=== PATIENT | female | born 1950 | race Caucasian/White ===

== ENCOUNTER 2016-04-27 12:15 | Inpatient (IN) | payer BC ==
[~2016-04-27] VITALS: Ht 167.6 cm; Wt 86.2 kg
[~2016-04-27 12:15] MED LIST: DULO60CA6 PO; HYDR-2762 PO; IBUP-1027 PO; OMEP40CA2 PO; PREG150C PO; SIMV40TA3 PO; ZOLP5TAB PO
[2016-04-29] MEDS ORDERED: ASPI325T4 PO (15:09)
[2016-04-29] MEDS ORDERED: CELE200C PO (15:09)
[2016-04-29] MEDS ORDERED: FERR-26 PO (15:09)
[2016-04-29] MEDS ORDERED: SUCR1TAB29 PO (15:09)
[2016-05-25] VITALS (9 sets, daily range): BP systolic 98–128; BP diastolic 56–70
[2016-05-25] MEDS ORDERED: CEFAZOLIN 2GM PREMIX 50 ML IV PRN (06:00)
[2016-05-25] MEDS ORDERED: TRANEXAMIC ACID 1,000 MG in IV NORMAL SALINE 50ML 50 ML INJ ONE ×2 (06:00→08:00)
[2016-05-25] MEDS ORDERED: CELECOXIB 200 MG CAPSULE ONE (06:11)
[2016-05-25] MEDS ORDERED: OXYC-244 PO (06:15)
[2016-05-25] MEDS ORDERED: CELECOXIB 200 MG CAPSULE PO ONE (06:30)
[2016-05-25] MEDS ORDERED: VANCOMYCIN 1 GM VIAL. ONE (06:40)
[2016-05-25] MEDS ORDERED: TOBRAMYCIN POWDER 1.2 GM VIAL. ONE (06:40)
[2016-05-25] MEDS ORDERED: PROPOFOL 20 ML IV ONE (06:58)
[2016-05-25] MEDS ORDERED: ONDANSETRON PF 4 MG/2 ML VIAL. ONE (06:58)
[2016-05-25] MEDS ORDERED: ROCURONIUM 50 MG/5 ML VIAL. ONE (06:58)
[2016-05-25] MEDS ORDERED: DEXAMETHASONE SOD PHOS 20 MG/5 ML VIAL. ONE ×2 (06:58→07:30)
[2016-05-25] MEDS ORDERED: LIDOCAINE 2% 100 MG/5 ML DISP.SYRIN. ONE (06:58)
[2016-05-25] MEDS ORDERED: FAMOTIDINE 20 MG/2 ML VIAL ONE (06:58)
[2016-05-25] MEDS ORDERED: MIDAZOLAM HCL 2 MG/2 ML VIAL. ONE (06:58)
[2016-05-25] MEDS ORDERED: MORPHINE SULFATE 2 MG/ML DISP.SYRIN. IV PRN ×2 (07:00→09:45)
[2016-05-25] MEDS ORDERED: IV RINGERS,LACTATED 1000ML 1,000 ML IV SCH (07:00)
[2016-05-25] MEDS ORDERED: FENTANYL PF 100 MCG/2 ML VIAL. IV PRN ×3 (07:00→09:45)
[2016-05-25] MEDS ORDERED: HYDROMORPHONE 2 MG/ML VIAL. IV PRN (07:00)
[2016-05-25] MEDS ORDERED: PROCHLORPERAZINE 10 MG/2 ML VIAL. IV PRN ×2 (07:00→09:45)
[2016-05-25] MEDS ORDERED: LIDOCAINE 1% 1 ML SYRINGE. ID PRN (07:00)
[2016-05-25] MEDS ORDERED: ONDANSETRON PF 4 MG/2 ML VIAL. IV PRN (07:00)
[2016-05-25] MEDS ORDERED: EPHEDRINE PF IN SALINE 50 MG/5 ML DISP.SYRIN. IV ONE (07:30)
[2016-05-25] MEDS ORDERED: VASOPRESSIN 20 UNIT/ML VIAL. ONE (07:33)
[2016-05-25] MEDS ORDERED: 0.9 % SODIUM CHLORIDE 50 ML VIAL. IJ ONE (07:34)
[2016-05-25] MEDS ORDERED: GLYCOPYRROLATE 1 MG/5 ML VIAL. ONE (07:34)
[2016-05-25] MEDS ORDERED: KETOROLAC 30 MG/ML SYRINGE FOR OR. INJ ONE (07:45)
[2016-05-25] MEDS ORDERED: MORPHINE SULFATE 5 MG, ROPIVacaine 0.5% PF 60 ML, EPINEPHRINE 0.5 MG in IV NORMAL SALIN... INT ART ONE (08:00)
[2016-05-25] MEDS ORDERED: NEOSTIGMINE METHYLSULFATE 5 MG/5 ML SYRINGE. ONE (08:41)
[2016-05-25] MEDS ORDERED: ACETAMINOPHEN INTRAVENOUS 100 ML IV ONE (08:44)
[2016-05-25] MEDS ORDERED: FENTANYL PF 100 MCG/2 ML VIAL. ONE (08:47)
[2016-05-25] MEDS ORDERED: SEVOFLURANE > 120 MINUTES. IH ONE (09:23)
[2016-05-25] MEDS ORDERED: MORPHINE SULFATE 4 MG/ML DISP.SYRIN. IV PRN ×2 (09:45)
[2016-05-25] MEDS ORDERED: MORPHINE SULFATE 10 MG/ML VIAL. IV PRN (09:45)
[2016-05-25] MEDS ORDERED: PROCHLORPERAZINE 5 MG TABLET. PO PRN (09:45)
[2016-05-25] MEDS ORDERED: 0.9 % SODIUM CHLORIDE 10 ML DISP.SYRIN. IV PRN (09:45)
[2016-05-25] MEDS ORDERED: OXYCODONE/APAP 5/325 TABLET. PO PRN (09:45)
[2016-05-25] MEDS ORDERED: DEXTROSE 50% 25 GM / 50ML DISP.SYRIN. IV PRN (09:45)
[2016-05-25] MEDS ORDERED: TRAMADOL 50 MG TABLET. PO PRN ×2 (09:45)
[2016-05-25] MEDS ORDERED: DIPHENHYDRAMINE 50 MG/ML VIAL IV PRN (09:45)
[2016-05-25] MEDS ORDERED: CALCIUM CARBONATE 500 MG TAB.CHEW PO PRN (09:45)
[2016-05-25] MEDS ORDERED: ACETAMINOPHEN 325 MG TABLET. PO PRN (09:45)
[2016-05-25] MEDS ORDERED: METOCLOPRAMIDE HCL 10 MG/2 ML VIAL. IV PRN (09:45)
[2016-05-25] MEDS: FENTANYL PF 100 MCG/2 ML VIAL. IV PRN ×2 (09:47→10:43)
--- NOTE | 2016-05-25 10:19 | PDOC4 ---
Operative Note Operative Note Date of Procedure: May 25, 2016 Pre-Op Diagnosis: Osteoarthritis right knee Post-Op Diagnosis: Osteoarthritis right knee Procedure: right total knee arthroplasty Surgeon: Angi Mendez MD Human Factors Advisor Lead: Marie Baldwin PA-C Anesthesia: General EBL: 100 mL Specimens Obtained: right knee bone and soft tissue Complications: none Implant Company: [employer] Drains: Hemovac plus pain catheter Tourniquet time: 57 minutes Indications for Procedure: Arthritis pain unrelieved by nonoperative management. Findings: Severe osteoarthritis with bone on bone contact in all three compartments Implants used: Size 4 right bicruciate stabilized Journey II BCS oxinium femoral component, size 3 right Journey nonporous tibial baseplate, size 3-4 15 mm right Journey II BCS XLPE articular insert, 32 mm oval Jyoti II resurfacing patellar component Procedure in Detail: The patient was identified in the preoperative holding area, and the correct right extremity was marked by me. The patient was taken to the operating room where the patient was anesthetized by the Department of Anesthesia. Preoperative antibiotics were given intravenously. Tranexamic acid 1 g was given intravenously for intraoperative hemostasis. A "time-out" procedure was performed. The patient was positioned supine on the operative table with a tourniquet on the upper thigh. The limb was thoroughly prepped and draped in sterile fashion. An impervious stockinet and adhesive drape were used such that the skin was entirely covered. An Keys leg alvarez was used. The operating team wore personal exhaust-ventilated hoods. The tourniquet was inflated to 350 mm Hg. A midline skin incision was made with a scalpel using the patella and tibial tubercle as landmarks. Electrocautery was used for hemostasis. My state tested nursing assistant used rake retractors. A medial parapatellar arthrotomy incision was used with extension into the distal quadriceps tendon. The patella was retracted laterally and Hohmann retractors were now used by my state tested nursing assistant. Excess synovium, the menisci, and the cruciate ligaments were resected sharply. The patella was assessed and excess synovium and osteophytes around the patellar articulation were removed. The patella was measured with a caliper, cut freehand with a saw using caliper measurements, sized, and then drilled for an oval three-pegged patella component. Periarticular injection was used in the suprapatellar pouch and distal quadriceps muscle. Whitesides's line was assessed on the femur. An intra-medullary 5 degree cutting guide was pinned to the femur, and a distal femoral cut was made with an oscillating saw. No additional distal femoral resection was required.My state tested nursing assistant held Hohmann retractors and an [facility] retractor to protect the medial and lateral collateral ligaments, the patellar tendon, the skin and the other soft tissues. An anterior referencing guide was applied with external rotation of Choose an item. to match Whitesides line. A 5-in-1 Journey II cutting guide was then applied and pinned to the femur. The posterior, anterior , and all chamfer cuts were made with the oscillating saw. An extramedullary guide was pinned to the tibia and rotational alignment and the planned resection thickness assessed. An external alignment gilberto was used to verify the planned cut in the varus-valgus plane and regarding posterior slope referencing the tibial tubercle, the tibial shaft, the ankle joint, and the second metatarsal. The upper tibia was cut made with an oscillating saw. My state tested nursing assistant held Hohmann retractors and a posterior cruciate ligament retractor to protect the medial and lateral collateral ligaments, the patellar tendon, the skin, the peroneal nerve and the other soft tissues. The upper tibia was sized with a trial baseplate. The posterior compartment was cleared of osteophytes and loose bodies, and posterior capsule released. Neyda-articular injection was used in the posterior compartment. The box cut for a posterior stabilized component was made. A preliminary reduction was performed with a trial femur, trial tibial baseplate and trial polyethylene. Soft-tissue balancing was now performed, and extension and rotation of the alignments was checked using a guide gilberto in the tibial trial and a guide pin in the femur. No additional releases were required. The stability was assessed using different thicknesses of tibial articular surface to find satisfactory stability and good range of motion. The rotation of the tibial component was marked on the upper tibia. Final trial reduction was now performed verifying patella tracking and tibiofemoral stability and alignment. The tibia preparation was completed with a drill, saw, and fin punch at the previously noted rotation. The final implants were verified and opened. Outer gloves were changed by the operating team. The bone cuts were washed thoroughly with the [employer] InterPulse device and dried. Two packages of Palacos bone cement were mixed in powdered form with 1 gm of Vancomycin and 1.2 g tobramycin, then vacuum-mixed with the monomer, and placed into a cement gun. The cut surfaces of the bone were thoroughly dried with Lara-tip suction and with laparotomy sponges for cement interdigitation. The final components were cemented into place. The knee was kept at full extension while the cement hardened, and excess cement was removed. Tranexamic acid 1 g was redosed intravenously for additional intraoperative hemostasis. A final periarticular injection was used for pain relief. The tourniquet was released, and electrocautery was used for hemostasis. A final check of [id number] and stability was made, and the polyethylene implant final size was chosen. The polyethylene implant was secured to the tibial baseplate, and the knee was reduced a final time. Thorough irrigation was used. Hemovac and pain catheter were used.The arthrotomy was closed with interrupted [id number] #1 PDS suture. The capsulotomy was then run with #1 STRATAFIX symmetric PDS plus. The subcutaneous tissues were closed with #2-0 Vicryl by my state tested nursing assistant. The skin was reapproximated with 3-0 Monocryl and Dermabond by my state tested nursing assistant. A bulky sterile dressing was applied. Needle and sponge counts were correct. ANGI MENDEZ MD May 25, 2016 10:19
--- NOTE | 2016-05-25 10:27 | PDOC1 ---
History and Physical Date of Admission Date of Admission DATE: 05/25/16 Identification/Chief Complaint Chief Complaint right knee osteoarthritis pain Source Source: Chart review History of Present Illness History of Present Illness Yamila is a 65 year old female patient with persistent right knee pain. She had a right knee arthroscopy with medial and lateral meniscectomy, loose body removal, and Blankenship's cyst excision on 11/14/15. She has done formal physical therapy, corticosteroid injections, bracing, a home exercise plan, all with little to no relief. She can no longer walk any distance due to the knee pain. She has a history of osteopenia. Past Medical History Cardiovascular: Hyperlipidemia GI: GERD Psych: Depression Past Surgical History Past Surgical History: Tonsillectomy, Hysterectomy, Other Family History Family History: Heart Disease, Stroke Social History Smoke: No ALCOHOL: rare Drugs: None Current Problem List Problem List Problems Medical Problems: (1) Osteoarthritis of right knee Status: Acute Problems: Current Medications Current Medications Current Medications Morphine Sulfate/ Ropivacaine/ Epinephrine HCl/ Sodium Chloride (Morphine 5mg Syringe/Naropin 0.5%/Adrenalin/Iv Sodium Chloride 0.9% 100ml) 99.5 ml @ 99.5 mls/hr 1X PERIOP ONCE INT ART Last administered on 05/25/16 07:52; Start at 08:00; Stop 05/25/16 at 09:04; Status DC Ondansetron HCl (Zofran) 4 mg PRN Q6HRS PRN IV Nausea; Start 05/25/16 at 07:00 ; Stop 05/26/16 at 06:59 Fentanyl Citrate (Fentanyl 2ml Vial) 25 mcg PRN Q5MIN PRN IV MILD PAIN; Start 05/25/16 at 07:00; Stop 05/26/16 at 06:59 Fentanyl Citrate (Fentanyl 2ml Vial) 50 mcg PRN Q5MIN PRN IV MODERATE PAIN Last administered on 05/25/16 09:47; Start 05/25/16 at 07:00; Stop 05/26/16 at 06:59 Morphine Sulfate 1 mg 1 mg PRN Q10MIN PRN IV SEVERE PAIN; Start 05/25/16 at 07: 00; Stop 05/26/16 at 06:59 Lactated Ringer's (Iv Lactated Ringers) 1,000 ml @ 0 mls/hr Q0M IV Last administered on 05/25/16 06:26; Start 05/25/16 at 07:00; Stop 05/25/16 at 18:59 Lidocaine HCl 2 ml 1X PRN PRN ID IV START; Start 05/25/16 at 07:00; Stop at 06:59 Hydromorphone HCl (Dilaudid) 0.5 mg PRN Q10MIN PRN IV SEVERE PAIN, Second choice; Start 05/25/16 at 07:00; Stop 05/26/16 at 06:59 Prochlorperazine Edisylate 5 mg 5 mg PACU PRN PRN IV NAUSEA; Start 05/25/16 at 07:00; Stop 05/26/16 at 06:59 Cefazolin Sodium/ Dextrose 50 ml @ 100 mls/hr 1X PREOP PRN IV PRIOR TO PROCEDURE Last administered on 05/25/16 07:37; Start 05/25/16 at 06:00; Stop at 18:00 Tranexamic Acid 1000 mg/Sodium Chloride 60 ml @ 60 mls/hr 1X PERIOP ONCE INJ Last administered on 05/25/16 07:42; Start 05/25/16 at 06:00; Stop 05/25/16 at 06:59; Status DC Tranexamic Acid/ Sodium Chloride (Cyklokapron/Iv Sodium Chloride 0.9% 50ml) 60 ml @ 60 mls/hr 1X PERIOP ONCE INJ Last administered on 05/25/16 08:49; Start 05/25/16 at 08:00; Stop 05/25/16 at 09:04; Status DC Celecoxib (Celebrex) 400 mg 1X ONCE PO Last administered on 05/25/16 06:26; Start 05/25/16 at 06:30; Stop 05/25/16 at 06:31; Status DC Ketorolac Tromethamine (Toradol For Or Only) 30 mg 1X ONCE INJ Last administered on 05/25/16 08:00; Start 05/25/16 at 07:45; Stop 05/25/16 at 07:46 ; Status DC Acetaminophen/ Hydrocodone Bitart (Lortab 7.5/325) 1 tab PRN Q3HRS PRN PO PAIN ; Start 05/25/16 at 09:45 Acetaminophen/ Hydrocodone Bitart (Lortab 10/325) 1 tab PRN Q3HRS PRN PO PAIN; Start 05/25/16 at 09:45 Tramadol HCl (Ultram) 50 mg PRN QID PRN PO PAIN; Start 05/25/16 at 09:45 Oxycodone/ Acetaminophen (Percocet 5/325) 1 tab PRN Q3HRS PRN PO PAIN; Start at 09:45 Oxycodone/ Acetaminophen (Percocet 7.5/ 325) 1 tab PRN Q3HRS PRN PO PAIN; Start 05/25/16 at 09:45 Tramadol HCl (Ultram) 100 mg PRN Q3HRS PRN PO PAIN; Start 05/25/16 at 09:45 Morphine Sulfate 2 mg PRN Q1HR PRN IV PAIN; Start 05/25/16 at 09:45 Fentanyl Citrate (Fentanyl 2ml Vial) 25 mcg PRN Q1HR PRN IV PAIN; Start at 09:45 Diphenhydramine HCl (Benadryl) 25 mg PRN Q6HRS PRN IV ITCHING; Start 05/25/16 at 09:45 Multivitamins/ Calcium (Thera M Plus) 1 tab DAILY PO ; Start 05/25/16 at 10:30 Senna/Docusate Sodium (Senna Plus) 1 tab DAILY PO ; Start 05/25/16 at 10:30 Ferrous Sulfate (Feosol) 325 mg BIDWMEALS PO ; Start 05/25/16 at 10:30 Celecoxib 200 mg 200 mg BID PO ; Start 05/25/16 at 10:30 Dextrose/Sodium Chloride (Iv D5% - 1/2 NS) 1,000 ml @ 100 mls/hr Q10H IV ; Start 05/25/16 at 09:41 Prochlorperazine Maleate (Compazine) 10 mg PRN Q4HRS PRN PO NAUSEA/VOMITING; Start 05/25/16 at 09:45 Metoclopramide HCl (Reglan) 10 mg PRN Q4HRS PRN IV NAUSEA/VOMITING; Start 05/25 at 09:45 Magnesium Hydroxide (Milk Of Magnesia) 2,400 mg 1X PRN PRN PO CONSTIPATION; Start 05/26/16 at 06:00; Stop 05/27/16 at 05:59 Bisacodyl (Dulcolax Supp) 10 mg 1X PRN PRN [place] CONSTIPATION; Start 05/26/16 at 16:00; Stop 05/27/16 at 15:59 Acetaminophen (Tylenol) 650 mg PRN Q4HRS PRN PO MILD PAIN / TEMP; Start at 09:45 Zolpidem Tartrate (Ambien) 5 mg PRN QHS PRN PO INSOMNIA, MAY REPEAT IN 1HR; Start 05/25/16 at 09:45 Calcium Carbonate/ Glycine (Tums) 500 mg PRN QID PRN PO INDIGESTION; Start at 09:45 Morphine Sulfate 4 mg PRN Q1HR PRN IV PAIN; Start 05/25/16 at 09:45 Morphine Sulfate 6 mg PRN Q1HR PRN IV PAIN; Start 05/25/16 at 09:45 Morphine Sulfate 8 mg 8 mg PRN Q1HR PRN IV PAIN; Start 05/25/16 at 09:45 Ketorolac Tromethamine/ Bupivacaine HCl/ Epinephrine HCl/ Miscellaneous (Toradol / Sensorcaine Mpf 0.25%/Adrenalin) 43.0 ml @ 258 mls/hr Q12H INT ART ; Start at 18:00; Stop 05/26/16 at 06:09; Status UNV Sodium Chloride (Normal Saline Flush) 10 ml QSHIFT PRN IV AFTER MEDS AND BLOOD DRAWS; Start 05/25/16 at 09:45 Fentanyl Citrate (Fentanyl 2ml Vial) 50 mcg PRN Q1HR PRN IV PAIN; Start at 09:45 Prochlorperazine Edisylate (Compazine) 10 mg PRN Q4HRS PRN IV NAUSEA/VOMITING; Start 05/25/16 at 09:45 Dextrose 12.5 gm 12.5 gm PRN Q15MIN PRN IV SEE COMMENTS; Start 05/25/16 at 09: 45 Cefazolin Sodium/ Dextrose (Ancef 2gm Premix) 50 ml @ 100 mls/hr Q6H IV ; Start 05/25/16 at 10:00; Stop 05/25/16 at 22:29; Status UNV Aspirin (Ecotrin) 325 mg BID PO ; Start 05/25/16 at 21:00 Celecoxib (Celebrex) 200 mg STK-MED ONCE .ROUTE ; Start 05/25/16 at 06:11; Stop 05/25/16 at 10:06; Status DC Tobramycin Sulfate 1.2 gm STK-MED ONCE .ROUTE ; Start 05/25/16 at 06:40; Stop at 10:07; Status DC Vancomycin HCl 1 gm STK-MED ONCE .ROUTE ; Start 05/25/16 at 06:40; Stop at 10:07; Status DC Lidocaine HCl 100 mg STK-MED ONCE .ROUTE ; Start 05/25/16 at 06:58; Stop at 10:07; Status DC Dexamethasone Sodium Phosphate (Decadron) 20 mg STK-MED ONCE .ROUTE ; Start at 06:58; Stop 05/25/16 at 10:07; Status DC Ondansetron HCl 4 mg 4 mg STK-MED ONCE .ROUTE ; Start 05/25/16 at 06:58; Stop at 10:07; Status DC Propofol (Diprivan) 20 ml @ As Directed STK-MED ONCE IV ; Start 05/25/16 at 06: 58; Stop 05/25/16 at 10:07; Status DC Famotidine (Pepcid) 20 mg STK-MED ONCE .ROUTE ; Start 05/25/16 at 06:58; Stop at 10:07; Status DC Midazolam HCl (Versed) 2 mg STK-MED ONCE .ROUTE ; Start 05/25/16 at 06:58; Stop 05/25/16 at 10:07; Status DC Rocuronium [place] (Zemuron) 50 mg STK-MED ONCE .ROUTE ; Start 05/25/16 at 06:58 ; Stop 05/25/16 at 10:07; Status DC Dexamethasone Sodium Phosphate (Decadron) 20 mg STK-MED ONCE .ROUTE ; Start at 07:30; Stop 05/25/16 at 10:08; Status DC Ephedrine Sulfate 50 mg STK-MED ONCE IV ; Start 05/25/16 at 07:30; Stop at 10:08; Status DC Vasopressin (Vasostrict) 20 unit STK-MED ONCE .ROUTE ; Start 05/25/16 at 07:33; Stop 05/25/16 at 10:08; Status DC Glycopyrrolate (Robinul) 1 mg STK-MED ONCE .ROUTE ; Start 05/25/16 at 07:34; Stop 05/25/16 at 10:08; Status DC Sodium Chloride (Sodium Chloride) 50 ml STK-MED ONCE IJ ; Start 05/25/16 at 07: 34; Stop 05/25/16 at 10:08; Status DC Neostigmine Methylsulfate 5 mg 5 mg STK-MED ONCE .ROUTE ; Start 05/25/16 at 08: 41; Stop 05/25/16 at 10:15; Status DC Acetaminophen (Ofirmev) 100 ml @ As Directed STK-MED ONCE IV ; Start 05/25/16 at 08:44; Stop 05/25/16 at 10:15; Status DC Fentanyl Citrate (Fentanyl 2ml Vial) 100 mcg STK-MED ONCE .ROUTE ; Start at 08:47; Stop 05/25/16 at 10:15; Status DC Sevoflurane (Ultane) 90 ml STK-MED ONCE IH ; Start 05/25/16 at 09:23; Stop 05/25 at 10:16; Status DC Active Scripts Active Reported Percocet 7.5-325 Mg Tablet (Oxycodone/Acetaminophen) 1 Each Tablet 1 Tab PO PRN Q6HRS PRN Celebrex (Celecoxib) 200 Mg Capsule 1 Cap PO DAILY Ferrous Sulfate 325 Mg Tablet 1 Tab PO DAILY Aspirin 325 Mg Tablet 1 Tab PO DAILY Carafate (Sucralfate) 1 Gm Tablet 1 Gm PO Ambien (Zolpidem Tartrate) 5 Mg Tablet 10 Mg PO HS PRN Cymbalta (Duloxetine Hcl) 60 Mg Capsule.dr 60 Mg PO DAILY Lyrica (Pregabalin) 150 Mg Capsule 150 Mg PO BID 30 Days Simvastatin 40 Mg Tablet 40 Mg PO HS Prilosec (Omeprazole) 40 Mg Capsule.dr 40 Mg PO DAILY Allergies Allergies: Coded Allergies: oxaprozin (Verified Allergy, Intermediate, Rash, 05/25/16) Physical Exam General: Alert, Oriented X3, Cooperative, No acute distress HEENT: Atraumatic, EOMI Lungs: Normal air movement Heart: RRR Abdomen: Soft Extremities: No clubbing, No cyanosis, Normal pulses Skin: No breakdown, No significant lesion Neuro: Normal speech, Normal tone, Sensation intact Psych/Mental Status: Mental status NL, Mood NL Vitals Vitals Vital Signs Date Time Temp Pulse Resp B/P Pulse Ox O2 Delivery O2 Flow Rate FiO2 05/25/16 10:10 87 10 119/44 91 Room Air 05/25/16 09:55 10 05/25/16 09:40 97.4 97.4 VTE Prophylaxis Ordered VTE Prophylaxis Devices: Yes VTE Pharmacological Prophylaxi: Yes Assessment/Plan Assessment/Plan Right knee osteoarthritis Dr. Mendez and the patient discussed treatment options. Dr. Mendez recommended right total knee arthroplasty. The risks of surgery were discussed with the patient and she agrees to proceed at a mutually convenient date. ROBERT WALTERS May 25, 2016 10:27
[2016-05-25] MEDS: CELECOXIB 200 MG CAPSULE PO SCH ×2 (10:30→20:51)
--- NOTE | 2016-05-25 10:48 | RAD ---
Portable right knee, 2 views, 05/25/2016: History: Postop evaluation A total knee prosthesis is in place in satisfactory position. A surgical drain overlies the upper site anteriorly. There is no evidence of a retained surgical instrument, needle or radiopaque sponge on these 2 views. IMPRESSION: No significant postoperative abnormality is detected.
[2016-05-25] MEDS: PREGABALIN 75 MG CAPSULE PO SCH ×2 (13:00→20:52)
[2016-05-25] MEDS: DULOXETINE HCL 30 MG CAPSULE.DR. PO SCH (13:00)
[2016-05-25] MEDS: SUCRALFATE 1 GM TABLET. PO SCH ×2 (13:00→17:12)
[2016-05-25] MEDS: PANTOPRAZOLE 40 MG TABLET. PO SCH (13:00)
[2016-05-25] MEDS: SENNOSIDES/DOCUSATE 8.6/50MG TABLET. PO SCH (13:48)
[2016-05-25] MEDS: MULTIVITAMIN with MINERAL TABLET. PO SCH (13:48)
[2016-05-25] MEDS: FERROUS SULFATE 325 MG TABLET PO SCH ×2 (13:48→17:00)
[2016-05-25] MEDS: IV DEXTROSE 5 %-0.45 % NACL 1,000 ML IV SCH (13:49)
[2016-05-25] MEDS: CEFAZOLIN 2GM PREMIX 50 ML IV SCH ×2 (13:50→19:28)
[2016-05-25] MEDS: HYDROCODONE/APAP 7.5/325MG TABLET. PO PRN (16:48)
[2016-05-25] MEDS: BUPIVACAINE MPF 0.25% 20 ML, EPINEPHRINE 0.5 MG in TOTAL VOLUME SYRINGE 21.5 ML INT ART SCH (16:48)
[2016-05-25] MEDS: SIMVASTATIN 40 MG TABLET. PO SCH (20:51)
[2016-05-25] MEDS: ASPIRIN ENTERIC COATED 325 MG TABLET.DR. PO SCH (20:52)
[2016-05-25] MEDS: HYDROCODONE/APAP 10/325 TABLET. PO PRN (20:52)
[2016-05-25] MEDS: ZOLPIDEM 5 MG TABLET. PO PRN (20:55)
[2016-05-26] MEDS: IV DEXTROSE 5 %-0.45 % NACL 1,000 ML IV SCH ×4 (00:28→20:58)
[2016-05-26] MEDS: CEFAZOLIN 2GM PREMIX 50 ML IV SCH (00:59)
[2016-05-26 03:00] VITALS: BP 101/52
[2016-05-26 05:01] LABS: HEMATOCRIT 26.7 % (36.0-47.0); HEMOGLOBIN 8.9 g/dL (12.0-15.5)
[2016-05-26] MEDS: BUPIVACAINE MPF 0.25% 20 ML, EPINEPHRINE 0.5 MG in TOTAL VOLUME SYRINGE 21.5 ML INT ART SCH (05:58)
[2016-05-26] MEDS ORDERED: MAGNESIUM HYDROXIDE 2,400 MG/30 ML ORAL.SUSP. PO PRN (06:00)
[2016-05-26 06:05] VITALS: BP 105/63
[2016-05-26] MEDS: ASPIRIN ENTERIC COATED 325 MG TABLET.DR. PO SCH ×2 (08:33→21:02)
[2016-05-26] MEDS: SENNOSIDES/DOCUSATE 8.6/50MG TABLET. PO SCH (08:33)
[2016-05-26] MEDS: CELECOXIB 200 MG CAPSULE PO SCH ×2 (08:33→21:03)
[2016-05-26] MEDS: HYDROCODONE/APAP 7.5/325MG TABLET. PO PRN (08:33)
[2016-05-26] MEDS: MULTIVITAMIN with MINERAL TABLET. PO SCH (08:33)
[2016-05-26] MEDS: FERROUS SULFATE 325 MG TABLET PO SCH ×2 (08:34→17:28)
[2016-05-26] MEDS: SUCRALFATE 1 GM TABLET. PO SCH (08:34)
[2016-05-26] MEDS: PANTOPRAZOLE 40 MG TABLET. PO SCH (08:34)
[2016-05-26] MEDS: PREGABALIN 75 MG CAPSULE PO SCH ×2 (08:35→21:03)
[2016-05-26] MEDS: DULOXETINE HCL 30 MG CAPSULE.DR. PO SCH (08:35)
--- NOTE | 2016-05-26 09:26 | PDOC ---
PROGRESS NOTES Subjective Subjective Sore in back of knee, but pain is controlled. Objective Vital Signs Vital Signs Date Time Temp Pulse Resp B/P Pulse Ox O2 Delivery O2 Flow Rate FiO2 05/26/16 08:33 Room Air 05/26/16 07:46 2.0 05/26/16 06:05 98.5 93 18 105/63 93 98.5 Physical Exam Dressing dry and intact. Pain catheter and Hemovac in place. Good dorsiflexion and plantarflexion of the foot with no evidence of neurovascular injury or DVT. Calves are soft and non-tender with a negative Homans sign. Peripheral pulses and light touch sensation intact. Labs Laboratory Tests Test 05/26/16 04:45 Hemoglobin 8.9g/dL (12.0-15.5) Hematocrit 26.7% (36.0-47.0) Mean Corpuscular Hemoglobin Concent 33g/dL (31-37) Laboratory Tests Test 05/26/16 04:45 Hemoglobin 8.9g/dL (12.0-15.5) Hematocrit 26.7% (36.0-47.0) Mean Corpuscular Hemoglobin Concent 33g/dL (31-37) Imaging Postoperative x-rays reviewed by me, showing satisfactory total knee replacement , with no apparent complications. Assessment Assessment POD #1 right TKA Problems: Plan Plan of Care Continue POC including DVT prophylaxis and physical therapy. At discharge, she is planning to go home with home health because her cannot drive. ROBERT WALTERS May 26, 2016 09:26
[2016-05-26 11:19] VITALS: BP 105/45
[2016-05-26] MEDS: HYDROCODONE/APAP 10/325 TABLET. PO PRN ×2 (12:30→17:32)
[2016-05-26 14:42] VITALS: BP 90/44
[2016-05-26] MEDS: OXYCODONE/APAP 7.5/325 TABLET. PO PRN ×2 (14:44→19:30)
[2016-05-26] MEDS ORDERED: BISACODYL 10 MG SUPP.RECT PR PRN (16:00)
[2016-05-26 17:27] VITALS: BP 129/50
[2016-05-26] MEDS: SIMVASTATIN 40 MG TABLET. PO SCH (21:02)
[2016-05-26] MEDS: ZOLPIDEM 5 MG TABLET. PO PRN (21:02)
[2016-05-27] MEDS: OXYCODONE/APAP 7.5/325 TABLET. PO PRN ×4 (02:42→17:21)
[2016-05-27 06:23] VITALS: BP 96/59
[2016-05-27 06:35] LABS: HEMATOCRIT 27.4 % (36.0-47.0); HEMOGLOBIN 9.2 g/dL (12.0-15.5)
[2016-05-27] MEDS: SUCRALFATE 1 GM TABLET. PO SCH (07:20)
[2016-05-27] MEDS: PANTOPRAZOLE 40 MG TABLET. PO SCH (07:20)
[2016-05-27] MEDS: FERROUS SULFATE 325 MG TABLET PO SCH ×2 (08:34→17:20)
[2016-05-27] MEDS: MULTIVITAMIN with MINERAL TABLET. PO SCH (08:34)
[2016-05-27] MEDS: PREGABALIN 75 MG CAPSULE PO SCH ×2 (08:35→20:33)
[2016-05-27] MEDS: CELECOXIB 200 MG CAPSULE PO SCH ×2 (08:36→20:34)
[2016-05-27] MEDS: SENNOSIDES/DOCUSATE 8.6/50MG TABLET. PO SCH (08:36)
[2016-05-27] MEDS: DULOXETINE HCL 30 MG CAPSULE.DR. PO SCH (08:36)
[2016-05-27] MEDS: ASPIRIN ENTERIC COATED 325 MG TABLET.DR. PO SCH ×2 (08:43→20:33)
[2016-05-27] MEDS: IV DEXTROSE 5 %-0.45 % NACL 1,000 ML IV SCH (11:41)
[2016-05-27] MEDS ORDERED: BISACODYL 5 MG TABLET.DR. PO PRN (12:30)
--- NOTE | 2016-05-27 12:53 | PDOC ---
PROGRESS NOTES Subjective Subjective Doing well. Mild pain increase from yesterday. She got a little lightheaded in therapy this morning. Objective Vital Signs Vital Signs Date Time Temp Pulse Resp B/P Pulse Ox O2 Delivery O2 Flow Rate FiO2 05/27/16 12:27 Room Air 05/27/16 06:23 98.6 94 16 96/59 95 98.6 05/26/16 07:46 2.0 Physical Exam Expected swelling. Ecchymosis laterally and posteriorly. Pain catheter and Hemovac have been removed. Aquacel dressing with spotty drainage only. Calf soft and nontender. Negative homans sign. Good AROM ankle. Peripheral pulses and light touch sensation intact. Labs Laboratory Tests Test 05/26/16 04:45 05/27/16 06:00 Hemoglobin 8.9g/dL (12.0-15.5) 9.2g/dL (12.0-15.5) Hematocrit 26.7% (36.0-47.0) 27.4% (36.0-47.0) Mean Corpuscular Hemoglobin Concent 33g/dL (31-37) 34g/dL (31-37) Laboratory Tests Test 05/27/16 06:00 Hemoglobin 9.2g/dL (12.0-15.5) Hematocrit 27.4% (36.0-47.0) Mean Corpuscular Hemoglobin Concent 34g/dL (31-37) Assessment Assessment POD #2 right TKA Problems: Plan Plan of Care Continue DVT prophylaxis and physical therapy. Planned discharge tomorrow to home, with outpatient PT at [facility]. Office F/U in 10-14 days. ROBERT WALTERS May 27, 2016 12:53
--- NOTE | 2016-05-27 17:19 | PATHOLOGY ---
PATHOLOGY REPORT * * * * * * * * FINAL DIAGNOSIS: Segments of bone and soft tissue, right total knee arthroplasty: - Degenerative arthritis. (JPM:csd; d/t: 05/27/2016) REPORT ELECTRONICALLY SIGNED BY: Ahmet Deleon M.D. DATE/TIME: 05/27/2016 17:19 * * * * * * * * GROSS PATHOLOGY: Received in formalin labeled "Yamlia Ceballos, right knee tissue," are multiple segments of bone, including tibial plateau, measuring 12.2 x 8.4 x 2.9 cm in aggregate dimensions admixed with soft tissue; meniscus is present. The specimen shows focal eburnation of the articular surfaces. Supervisor Housecleaner sections of bone and soft tissue are submitted in cassette A1, following decalcification. (CAA; 05/26/2016) INITIAL CPT CODE(S): A; 26655, 99834 Professional services performed [place] [facility] [place] [address] Technical services performed by [facility] at [address] [place] [address]. SPECIMEN(S) RECEIVED: A.Right knee tissue CLINICAL HISTORY: Right knee OA PATIENT: YAMILA CEBALLOS /AGE: 3 1950 (Age: 65) PATIENT #: [id number] ALT CASE #: SPECIMEN COLLECTION DATE: 05/25/2016 SPECIMEN RECEIVED DATE: 05/25/2016 [facility] - [address] [place] [address] - PHONE: [phone] * * * END OF REPORT * * *
[2016-05-27 17:56] VITALS: BP 113/72
[2016-05-27] MEDS: SIMVASTATIN 40 MG TABLET. PO SCH (20:34)
[2016-05-27] MEDS: ZOLPIDEM 5 MG TABLET. PO PRN (21:09)
[2016-05-28] VITALS (11 sets, daily range): BP systolic 96–137; BP diastolic 51–74
[2016-05-28 07:12] LABS: HEMATOCRIT 23.1 % (36.0-47.0); HEMOGLOBIN 7.8 g/dL (12.0-15.5)
[2016-05-28] MEDS: PANTOPRAZOLE 40 MG TABLET. PO SCH (07:41)
[2016-05-28] MEDS: SUCRALFATE 1 GM TABLET. PO SCH (07:41)
[2016-05-28] MEDS: DULOXETINE HCL 30 MG CAPSULE.DR. PO SCH (08:54)
[2016-05-28] MEDS: ASPIRIN ENTERIC COATED 325 MG TABLET.DR. PO SCH (08:54)
[2016-05-28] MEDS: CELECOXIB 200 MG CAPSULE PO SCH (08:54)
[2016-05-28] MEDS: SENNOSIDES/DOCUSATE 8.6/50MG TABLET. PO SCH (08:54)
[2016-05-28] MEDS: FERROUS SULFATE 325 MG TABLET PO SCH (08:54)
[2016-05-28] MEDS: MULTIVITAMIN with MINERAL TABLET. PO SCH (08:54)
[2016-05-28] MEDS: PREGABALIN 75 MG CAPSULE PO SCH (08:55)
[2016-05-28] MEDS: OXYCODONE/APAP 7.5/325 TABLET. PO PRN ×2 (08:55→13:16)
--- NOTE | 2016-05-28 13:14 | PDOC ---
PROGRESS NOTES Subjective Subjective Doing better. Hgb was 7.8, she was hypotensive, and symptomatic so she is receiving a blood transfusion now. Objective Vital Signs Vital Signs Date Time Temp Pulse Resp B/P Pulse Ox O2 Delivery O2 Flow Rate FiO2 05/28/16 12:40 97.5 93 16 108/63 97.5 05/28/16 10:20 100 Room Air 05/26/16 07:46 2.0 Physical Exam Expected swelling. Dressing with spotty drainage only. Calf soft and nontender. Negative Homans. Good AROM ankle. Peripheral pulses and light touch sensation intact. Labs Laboratory Tests Test 05/27/16 06:00 05/28/16 06:40 Hemoglobin 9.2g/dL (12.0-15.5) 7.8g/dL (12.0-15.5) Hematocrit 27.4% (36.0-47.0) 23.1% (36.0-47.0) Mean Corpuscular Hemoglobin Concent 34g/dL (31-37) 34g/dL (31-37) Laboratory Tests Test 05/28/16 06:40 Hemoglobin 7.8g/dL (12.0-15.5) Hematocrit 23.1% (36.0-47.0) Mean Corpuscular Hemoglobin Concent 34g/dL (31-37) Assessment Assessment POD 3# right TKA Problems: Plan Plan of Care Discharge later today, to home with out patient PT. Continue DVT prophylaxis and physical therapy. F/U 10-14 days. ROBERT WALTERS May 28, 2016 13:14
--- NOTE | 2016-05-28 13:19 | PDOC3 ---
Discharge Summary Visit Information Date of Admission: May 25, 2016 Date of Discharge: May 28, 2016 Admitting Diagnosis: right knee osteoarthritis pain Final Diagnosis Problems Medical Problems: (1) Osteoarthritis of right knee Status: Acute Brief Hospital Course Allergies Allergies Coded Allergies Type Severity Reaction Last Updated Verified oxaprozin Allergy Intermediate Rash 05/25/16 Yes Vital Signs Vital Signs Date Time Temp Pulse Resp B/P Pulse Ox O2 Delivery O2 Flow Rate FiO2 05/28/16 13:16 16 Room Air 05/28/16 12:40 97.5 93 108/63 97.5 05/28/16 10:20 100 Lab Results Laboratory Tests Test 05/27/16 06:00 05/28/16 06:40 Hemoglobin 9.2g/dL (12.0-15.5) 7.8g/dL (12.0-15.5) Hematocrit 27.4% (36.0-47.0) 23.1% (36.0-47.0) Mean Corpuscular Hemoglobin Concent 34g/dL (31-37) 34g/dL (31-37) Laboratory Tests Test 05/28/16 06:40 Hemoglobin 7.8g/dL (12.0-15.5) Hematocrit 23.1% (36.0-47.0) Mean Corpuscular Hemoglobin Concent 34g/dL (31-37) Brief Hospital Course 65 year old female who presented with knee osteoarthritis, for elective total knee arthroplasty. The patient underwent total knee arthroplasty under general anesthesia the day of admission. Perioperative antibiotics and DVT prophylaxis were used. Postoperatively physical therapy and case management were consulted. The patient progressed and is stable for discharge. Discharge Information Condition at Discharge: Stable Follow Up: Weeks (2) Disposition/Orders: D/C to Home Scheduled Aspirin (Aspirin) 1 TAB PO DAILY (Reported) Celecoxib (Celebrex) 1 CAP PO DAILY (Reported) Duloxetine Hcl (Cymbalta) 60 MG PO DAILY (Reported) Ferrous Sulfate (Ferrous Sulfate) 1 TAB PO DAILY (Reported) Omeprazole (Prilosec) 40 MG PO DAILY (Reported) Pregabalin (Lyrica) 150 MG PO BID (Reported) Simvastatin (Simvastatin) 40 MG PO HS (Reported) Scheduled PRN Oxycodone/Apap 7.5-325 (Percocet 7.5-325 Mg Tablet) 1 TAB PO PRN Q6HRS PRN PRN PAIN (Reported) Zolpidem Tartrate (Ambien) 10 MG PO HS PRN PRN INSOMNIA (Reported) Miscellaneous Medications Sucralfate (Carafate) 1 GM PO (Reported) Patient Instructions Patient Instructions Patient Instructions Continue to WBAT with walker. Keep dressing dry and intact. F/U with [facility] in 10-14 days. Call for appointment. Physical therapy for TKA Continue DVT prophylaxis. ROBERT WALTERS May 28, 2016 13:19
[2016-05-28] MEDS ORDERED: OXYC-323 PO (14:32)
== END 2016-05-28 18:35 | disposition home or self-care (01) | DRG 470 ==
LOC: OPSVCIP 05-25 05:37 → 4 SOUTHEST 05-25 11:12
PROVIDERS: ADMIT Orthopaedic Surgery; ATTEND Orthopaedic Surgery
PROC: 30233N1 Transfusion of Nonautologous Red Blood Cells into Peripheral Vein, Percutaneous Approach (ICD-10-PCS; 2016-05-25)
PROC: 0SRC0J9 Replacement of Right Knee Joint with Synthetic Substitute, Cemented, Open Approach (ICD-10-PCS; principal; 2016-05-25 07:10)
DX: M17.11 Unilateral primary osteoarthritis, right knee (principal); E78.5 Hyperlipidemia, unspecified; K21.9 Gastro-esophageal reflux disease without esophagitis; M85.80 Other specified disorders of bone density and structure, unspecified site; F32.9 Major depressive disorder, single episode, unspecified; Z90.710 Acquired absence of both cervix and uterus; Z82.3 Family history of stroke; Z88.8 Allergy status to other drugs, medicaments and biological substances
CPT/HCPCS: 36415; 73560; 85014; 85018; 86850; 86900; 86901; 86920; 88305; 88311; J0171; J0690; J1100; J1885; J2250; J2270; J2405; J2704; J2710; J2795; J3010; J3260; J3370; J3490; J7030; J7120; P9016; S0028; 97116; 97150; 97530; C1769

== ENCOUNTER → 2016-05-03 | Outpatient (CLI) | payer BC ==
[2015-02-25 10:02] VITALS: BP 150/86
[~2016-05-03] MED LIST changes: +ASPI325T4 PO; +CELE200C PO; +FERR-26 PO; +SUCR1TAB29 PO
[2016-05-03 09:11] LABS: BASO # 0.1 x10^3/uL (0.0-0.2); BASO % 1 % (0-3); EOS % 5 % (0-3); HEMATOCRIT 43.5 % (36.0-47.0); HEMOGLOBIN 13.9 g/dL (12.0-15.5); LYMPH # 1.6 x10^3/uL (1.0-4.8); LYMPH % 31 % (24-48); MEAN CORPUSCULAR HEMOGLOBIN 28 pg (25-35); MEAN CORPUSCULAR HGB CONC 32 g/dL (31-37); MEAN CORPUSCULAR VOLUME 88 fL (79-100); MONO % 8 % (0-9); NEUT % 55 % (31-73); PLATELET COUNT 247 x10^3/uL (140-400); RED BLOOD COUNT 4.97 x10^6/uL (3.50-5.40); WHITE BLOOD COUNT 5.1 x10^3/uL (4.0-11.0)
[2016-05-03 09:29] LABS: CALCIUM 9.2 mg/dL (8.5-10.1); CREATININE 0.9 mg/dL (0.6-1.0); GFR 63.2; POTASSIUM 4.5 mmol/L (3.5-5.1)
[2016-05-03 09:37] LABS: PROTHROMBIN TIME PATIENT 12.6 SEC (11.7-14.0)
[2016-05-03 12:03] LABS: BILIRUBIN,URINE NEGATIVE (NEG); GLUCOSE,URINE NEGATIVE (NEG); NITRITE,URINE NEGATIVE (NEG); PH,URINE 6.5; PROTEIN,URINE NEGATIVE (NEG-TRACE); UROBILINOGEN,URINE 0.2 mg/dL (0.2 mg/dL)
[2016-05-03 12:10] LABS: BACTERIA,URINE MODERATE /HPF (0-FEW); RBC,URINE 0 /HPF (0-2); SQUAMOUS EPITHELIAL CELL,UR MANY /LPF
--- NOTE | 2016-05-03 12:22 | EKG ---
[facility] [address] [place] [address] Test Date: 2016-05-03 Test Time: 12:21:07 Pat Name: DANA OSPINA Department: Room: Gender: F Senior Procurement Manager: TYREL : 1950 Requested By: ANGI DOWNING Order Number: [id number] Reading MD: Viktor Real Measurements Intervals [place] Rate: 86 P: 45 CA: 128 QRS: -7 QRSD: 68 T: 39 QT: 340 QTc: 410 Interpretive Statements SINUS RHYTHM LEFTWARD AXIS Electronically Signed On 05-03-2016 15:42:34 PER DIEM by Viktor Real
--- NOTE | 2016-05-03 13:01 | RAD ---
Chest, 2 views, 05/03/2016: History: Preop evaluation for knee surgery The heart size and pulmonary vascularity are normal. There is a small hiatal hernia. No pulmonary infiltrates are seen. There is no evidence of pleural fluid. Mild scattered spurs are present in the spine. IMPRESSION: 1. Small hiatal hernia. 2. No acute cardiopulmonary abnormality is detected.
== END | disposition home or self-care (01) ==
LOC: SURGPAT 12:54
PROVIDERS: ATTEND Orthopaedic Surgery
DX: M17.11 Unilateral primary osteoarthritis, right knee (principal); K44.9 Diaphragmatic hernia without obstruction or gangrene; E78.5 Hyperlipidemia, unspecified; Z96.651 Presence of right artificial knee joint
CPT/HCPCS: 36415; 71020; 80048; 81001; 82040; 85027; 85610; 85651; 85730; 87086; 87641; 93005

== ENCOUNTER 2018-01-05 06:30 | Inpatient (IN) | payer MEDICARE ==
[~2018-01-05] VITALS: Ht 168.9 cm; Wt 81.6 kg
[2018-01-05] VITALS (11 sets, daily range): BP systolic 114–135; BP diastolic 42–56
[~2018-01-05 06:30] MED LIST changes: -ASPI325T4 PO; +ASPI325T8 PO; +BUPIVACAINE-EPI 0.5%-1:200000 50 ML VIAL. ONE; +DEXL60CA2 PO; -FERR-26 PO; +FERR325T14 PO; +OXYC-323 PO; +OXYC-327 PO; -SUCR1TAB29 PO; +SUCR1TAB35 PO; +SURGICEL HEMOSTAT 4X8 EACH. ONE
[2018-01-05] MEDS ORDERED: PROCHLORPERAZINE 10 MG/2 ML VIAL. IV PRN (07:00)
[2018-01-05] MEDS ORDERED: IV RINGERS,LACTATED 1000ML 1,000 ML IV SCH (07:00)
[2018-01-05] MEDS ORDERED: MORPHINE SULFATE 2 MG/ML VIAL. IV PRN ×2 (07:00→11:00)
[2018-01-05] MEDS ORDERED: fentaNYL PF VIAL 100 MCG/2 ML VIAL IV PRN (07:00)
[2018-01-05] MEDS ORDERED: ONDANSETRON PF 4 MG/2 ML VIAL. IV PRN ×2 (07:00→11:00)
[2018-01-05] MEDS ORDERED: HYDROmorphone 2 MG/ML VIAL IV PRN (07:00)
[2018-01-05] MEDS ORDERED: LIDOCAINE 1% PF 2 ML VIAL. ID PRN (07:00)
[2018-01-05] MEDS ORDERED: fentaNYL PF VIAL 100 MCG/2 ML VIAL ONE ×3 (07:46→11:31)
[2018-01-05] MEDS ORDERED: ROCURONIUM 50 MG/5 ML VIAL. ONE ×2 (07:46→09:16)
[2018-01-05] MEDS ORDERED: DEXAMETHASONE SOD PHOS 20 MG/5 ML VIAL. ONE (07:46)
[2018-01-05] MEDS ORDERED: MIDAZOLAM HCL/PF 2 MG/2 ML VIAL. ONE (07:46)
[2018-01-05] MEDS ORDERED: PROPOFOL 20 ML IV ONE (07:46)
[2018-01-05] MEDS ORDERED: ONDANSETRON PF 4 MG/2 ML VIAL. ONE (07:46)
[2018-01-05] MEDS ORDERED: SUCCINYLCHOLINE 200 MG/10 ML VIAL. ONE (07:48)
[2018-01-05] MEDS ORDERED: ePHEDrine PF IN SALINE 50 MG/5 ML DISP.SYRIN IV ONE (08:19)
[2018-01-05] MEDS ORDERED: GLYCOPYRROLATE 1 MG/5 ML VIAL. ONE (08:47)
[2018-01-05] MEDS ORDERED: SCOPOLAMINE 1.5MG PATCH. TD ONE (09:15)
[2018-01-05] MEDS ORDERED: ALBUTEROL SULFATE 2.5 MG/3 ML NEBU. ONE (09:23)
[2018-01-05] MEDS ORDERED: VASOPRESSIN 20 UNIT/ML VIAL. ONE (09:54)
[2018-01-05] MEDS ORDERED: diphenhydrAMINE 50 MG/ML VIAL ONE (10:01)
[2018-01-05] MEDS ORDERED: NEOSTIGMINE METHYLSULFATE 5 MG/5 ML SYRINGE. ONE (10:16)
[2018-01-05] MEDS: fentaNYL PF VIAL 100 MCG/2 ML VIAL IV PRN ×3 (10:58→11:40)
--- NOTE | 2018-01-05 10:59 | PDOC4 ---
Operative Note Operative Note Operative Note Preoperative Diagnosis: Large hiatal hernia with gastroesophageal reflux disease Postoperative Diagnosis: Same Procedure: Laparoscopic repair of large hiatal hernia with Neo fundoplication Surgeon: Andrea Aponte.: Dr. Lee Anesthesia: Gen. Estimated Blood Loss: 10 mL Specimen: None Drains: None Complications: None Indications: The patient is a 67 year old female who is referred following the GI evaluation for upper abdominal and lower chest discomfort. Evaluation identified a large hiatal hernia with the much of the stomach present in the chest. She was referred for surgical repair. The risks of surgery were discussed which include bleeding, infection, recurrent herniation, gastric or esophageal perforation, visceral injury, recurrent reflux, gas bloat syndrome, dysphasia, potential need for additional surgeries or procedures. She understands and would like to proceed. Description: The patient was taken to the operating room and placed supine on the operating table. General anesthesia was performed. The patient was then placed in lithotomy. The abdomen was prepped with ChloraPrep and draped in a standard surgical fashion. A small incision was made superior to and to the patient's left of the umbilicus through which a visualized 5 mm trocar was inserted. A pneumoperitoneum was then created and the laparoscope was introduced. In the right lateral abdomen a 12 mm trocar was inserted through which a soft fan retractor was used to elevate the left lobe of the liver. In the right upper quadrant a 5 mm trocar was inserted. In the left upper quadrant an 11 mm trocar was inserted while in the left lateral abdomen a 5 mm trocar was inserted. Attention was then directed to the diaphragmatic hiatus. As expected there was a large hiatal hernia defect with much of the stomach present in the chest. We began mobilizing the entire hernia sac within the mediastinum. We started this on the right side and began freeing up the sac from the right ros. The Harmonic scalpel assisted for much of this dissection. We continued mobilizing the sac superiorly well into the mediastinum. We continued this dissection anteriorly freeing up the sac and its attachments in this location. The dissection then continued along the left ros and the sac and attachments were mobilized here as well. Due to the large size and redundancy of the sac considerable time was required in freeing this out of the mediastinum. The gastrocolic omentum was then opened with the Harmonic scalpel in the upper portion of the greater curvature. We then freed up the upper part of the greater curvature and fundus using the harmonic scalpel. Large blood vessels were doubly clipped and divided. The dissection continued all the way back up to the left ros and any remaining splenic attachments were also mobilized. At this point the esophagus was readily visualized and we were able to free up the area around his gastroesophageal junction. A [place] drain was then placed around the esophagus at the GE junction and clips were applied holding the Rubia in place. With retraction on the [place] we were able to continue freeing up any remaining sac attachments particularly in the posterior location. At this point the GE junction was well within the abdominal cavity. The left and right ros were then reapproximated with interrupted 2-0 silk sutures using the Endo Stitch device. Stitches were applied both anteriorly and posteriorly allowing for closure of the hernia defect. We elected to reinforce the closure with a Phasix ST mesh patch. The mesh was tailored to fit the space and a slit was made to accommodate the esophagus. The mesh was then introduced and laid up against the diaphragm and around the esophagus. Initial fixation sutures were placed at the superior corners of the mesh using 2-0 silk. The entire mesh was then fixed to the diaphragm using the Tisseel fibrin glue. The fundus was then wrapped around in a 360 fashion creating the fundoplication. A shoeshine maneuver was used to ensure no twists or kinks. An initial 2-0 Ethibond suture was used securing the fundic lips together. Another suture was placed superior to this which incorporated a small bite of the anterior esophagus. An additional suture was then placed inferiorly completing the fundoplication. At this point hemostasis was good, the hernia was well repaired with good coverage from the mesh, and the fundoplication was intact with a nice orientation. The 11 and 12 mm trochars were then removed and the fascia closed with 0 Vicryl using an Endo Close. The remaining ports were removed and the pneumoperitoneum was relieved. Skin at all incisions was closed with 4-0 Monocryl. Steri- Strips and dressings were applied. The patient tolerated the procedure well. YOLI TERAN MD Jan 05, 2018 10:59
[2018-01-05] MEDS ORDERED: ZOLPIDEM 5 MG TABLET. PO PRN (11:00)
[2018-01-05] MEDS ORDERED: 0.9 % SODIUM CHLORIDE 10 ML DISP.SYRIN. IV PRN (11:00)
[2018-01-05] MEDS ORDERED: MORPHINE SULFATE 4 MG/ML VIAL. IV PRN (11:15)
[2018-01-05] MEDS ORDERED: PHENYLEPHRINE in 0.9% NACL PF 1 MG/10 ML SYRINGE. IV ONE (12:11)
[2018-01-05] MEDS: IV 1/2 NORMAL SALINE 1,000 ML IV SCH ×2 (12:44→20:22)
[2018-01-05] MEDS: MORPHINE SULFATE 2 MG/ML VIAL. IV PRN (12:45)
[2018-01-05] MEDS: MORPHINE SULFATE 4 MG/ML VIAL. IV PRN ×3 (14:28→22:19)
[2018-01-05] MEDS: PREGABALIN 75 MG CAPSULE PO SCH (20:19)
[2018-01-05] MEDS: SIMVASTATIN 40 MG TABLET. PO SCH (20:19)
[2018-01-06] MEDS: MORPHINE SULFATE 4 MG/ML VIAL. IV PRN (02:56)
[2018-01-06 03:01] VITALS: BP 120/42
[2018-01-06 07:00] VITALS: BP 128/62
[2018-01-06] MEDS ORDERED: HYDROcodon/APAP 7.5/325MG ORAL 15 ML SOLUTION PO PRN (07:15)
[2018-01-06] MEDS: DULoxetine HCL 30 MG CAPSULE.DR PO SCH (08:21)
[2018-01-06] MEDS: PREGABALIN 75 MG CAPSULE PO SCH ×2 (08:22→20:58)
[2018-01-06] MEDS: HYDROcodon/APAP 7.5/325MG ORAL 15 ML SOLUTION PO PRN ×2 (08:24→20:58)
--- NOTE | 2018-01-06 09:28 | PDOC ---
SURGICAL PROGRESS NOTE Subjective Patient doing okay does complain of some left shoulder pain. Tolerated clear liquid diet this morning Vital Signs Vital Signs Date Time Temp Pulse Resp B/P (MAP) Pulse Ox O2 Delivery O2 Flow Rate FiO2 01/06/18 08:24 16 Room Air 01/06/18 07:00 98.2 87 128/62 (84) 94 98.2 01/05/18 23:00 2.0 I&O Intake and Output 01/06/18 07:00 Intake Total 2832 ml Output Total 160 ml Balance 2672 ml Intake Oral 0 ml IV Total 2832 ml Output Urine Total 150 ml Estimated Blood Loss 10 ml # Voids 3 PATIENT HAS A WOLFF: No General: Alert, Oriented X3, Cooperative, mild distress Abdomen: Normal bowel sounds, Soft, Other (mild incisional tenderness wounds clean dry and intact) Assessment/Plan Status post laparoscopic Neo fundoplication Encourage activity continue supportive care TEENA ESCALANTE MD Jan 06, 2018 09:28
[2018-01-06] MEDS: MORPHINE SULFATE 2 MG/ML VIAL. IV PRN ×3 (10:15→18:04)
[2018-01-06 10:57] VITALS: BP 130/53
[2018-01-06] MEDS: IV 1/2 NORMAL SALINE 1,000 ML IV SCH (14:14)
[2018-01-06 15:19] VITALS: BP 143/63
[2018-01-06 19:00] VITALS: BP 159/67
[2018-01-06] MEDS: SIMVASTATIN 40 MG TABLET. PO SCH (20:58)
[2018-01-06 23:00] VITALS: BP 146/63
[2018-01-07 03:00] VITALS: BP 128/69
[2018-01-07 07:00] VITALS: BP 142/79
[2018-01-07] MEDS: HYDROcodon/APAP 7.5/325MG ORAL 15 ML SOLUTION PO PRN (08:11)
[2018-01-07] MEDS: DULoxetine HCL 30 MG CAPSULE.DR PO SCH (08:11)
[2018-01-07] MEDS: PREGABALIN 75 MG CAPSULE PO SCH (08:12)
[2018-01-07] MEDS: IV 1/2 NORMAL SALINE 1,000 ML IV SCH (08:42)
[2018-01-07 10:56] VITALS: BP 111/59
--- NOTE | 2018-01-07 11:18 | PDOC ---
PROGRESS NOTES Subjective Subjective some left shoulder pain since surgery, but some improvement, taking po well Objective Objective Vital Signs Date Time Temp Pulse Resp B/P (MAP) Pulse Ox O2 Delivery O2 Flow Rate FiO2 01/07/18 10:56 96.4 81 16 111/59 (76) 93 Room Air 96.4 01/05/18 23:00 2.0 Intake and Output 01/07/18 07:00 Intake Total 728 ml Balance 728 ml IV Total 728 ml # Voids 8 Physical Exam Abdomen: Soft, No tenderness Assessment Assessment S/P HH repair, tino Plan Plan of Care Discharge Comment Review of Relevant I have reviewed the following items raysa (where applicable) has been applied. Medications Current Medications Prochlorperazine Edisylate (Compazine) 5 mg PACU PRN PRN IV NAUSEA, MRX1; Start 01/05/18 at 07:00; Stop 01/05/18 at 23:00; Status DC Hydromorphone HCl (Dilaudid) 0.5 mg PRN Q10MIN PRN IV SEV PAIN, Second choice; Start 01/05/18 at 07:00; Stop 01/05/18 at 23:00; Status DC Lidocaine HCl (Xylocaine-Mpf 1% 2ml Vial) 2 ml PRN 1X PRN ID IV START; Start 01/05/18 at 07:00; Stop 01/05/18 at 23:00; Status DC Ringer's Solution 1,000 ml @ 30 mls/hr Q24H IV Last administered on 01/05/18at 07:04; Start 01/05/18 at 07:00; Stop 01/05/18 at 18:59; Status DC Morphine Sulfate (Morphine Sulfate) 1 mg PRN Q10MIN PRN IV SEVERE PAIN; Start 01/05/18 at 07:00; Stop 01/05/18 at 23:00; Status DC Fentanyl Citrate (Fentanyl 2ml Vial) 50 mcg PRN Q5MIN PRN IV MODERATE TO SEVERE PAIN Last administered on 01/05/18at 11:40; Start 01/05/18 at 07:00; Stop 01/05/18 at 23:00; Status DC Fentanyl Citrate (Fentanyl 2ml Vial) 25 mcg PRN Q5MIN PRN IV MILD PAIN; Start 01/05/18 at 07:00; Stop 01/05/18 at 23:00; Status DC Ondansetron HCl (Zofran) 4 mg PRN Q6HRS PRN IV NAUSEA/VOMITING; Start 01/05/18 at 07:00; Stop 01/05/18 at 23:00; Status DC Cefazolin Sodium/ Dextrose 50 ml @ 100 mls/hr 1X PREOP PRN IV PRIOR TO PROCEDURE; Start 01/05/18 at 06:00; Stop 01/05/18 at 18:05; Status DC Bupivacaine HCl/ Epinephrine Bitart (Marcaine-Epi 0.5%-1:623655) 50 ml STK-MED ONCE .ROUTE Last administered on 01/05/18at 08:45; Start 01/05/18 at 06:14; Stop 01/05/18 at 07:15; Status DC Cellulose (Surgicel Hemostat 4x8) 1 each STK-MED ONCE .ROUTE ; Start 01/05/18 at 06:14; Stop 01/05/18 at 06:15; Status Cancel Cellulose (Surgicel Hemostat 4x8) 1 each STK-MED ONCE .ROUTE ; Start 01/05/18 at 06:14; Stop 01/05/18 at 07:16; Status DC Dexamethasone Sodium Phosphate (Decadron) 20 mg STK-MED ONCE .ROUTE ; Start 01/05/18 at 07:46; Stop 01/05/18 at 07:47; Status DC Ondansetron HCl (Zofran) 4 mg STK-MED ONCE .ROUTE ; Start 01/05/18 at 07:46; Stop 01/05/18 at 07:47; Status DC Propofol 20 ml @ As Directed STK-MED ONCE IV ; Start 01/05/18 at 07:46; Stop at 07:47; Status DC Midazolam HCl (Versed) 2 mg STK-MED ONCE .ROUTE ; Start 01/05/18 at 07:46; Stop 01/05/18 at 07:47; Status DC Fentanyl Citrate (Fentanyl 2ml Vial) 100 mcg STK-MED ONCE .ROUTE ; Start at 07:46; Stop 01/05/18 at 07:47; Status DC Rocuronium [place] (Zemuron) 50 mg STK-MED ONCE .ROUTE ; Start 01/05/18 at 07:46 ; Stop 01/05/18 at 07:47; Status DC Succinylcholine Chloride (Anectine) 200 mg STK-MED ONCE .ROUTE ; Start 01/05/18 at 07:48; Stop 01/05/18 at 07:50; Status DC Ephedrine Sulfate (ePHEDrine PF IN SALINE SYRINGE) 50 mg STK-MED ONCE IV ; Start 01/05/18 at 08:19; Stop 01/05/18 at 08:21; Status DC Glycopyrrolate (Robinul) 1 mg STK-MED ONCE .ROUTE ; Start 01/05/18 at 08:47; Stop 01/05/18 at 08:49; Status DC Scopolamine (Transderm-Scop) 1 patch 1X ONCE TD Last administered on at 09:33; Start 01/05/18 at 09:15; Stop 01/05/18 at 09:16; Status DC Rocuronium [place] (Zemuron) 50 mg STK-MED ONCE .ROUTE ; Start 01/05/18 at 09:16 ; Stop 01/05/18 at 09:18; Status DC Albuterol Sulfate (Ventolin Neb Soln) 2.5 mg STK-MED ONCE .ROUTE ; Start at 09:23; Stop 01/05/18 at 09:24; Status DC Vasopressin (Vasostrict) 20 unit STK-MED ONCE .ROUTE ; Start 01/05/18 at 09:54; Stop 01/05/18 at 09:56; Status DC Diphenhydramine HCl (Benadryl) 50 mg STK-MED ONCE .ROUTE ; Start 01/05/18 at 10: 01; Stop 01/05/18 at 10:03; Status DC Neostigmine Methylsulfate (Neostigmine Methylsulfate) 5 mg STK-MED ONCE .ROUTE ; Start 01/05/18 at 10:16; Stop 01/05/18 at 10:17; Status DC Fentanyl Citrate (Fentanyl 2ml Vial) 100 mcg STK-MED ONCE .ROUTE ; Start at 10:51; Stop 01/05/18 at 10:52; Status DC Sodium Chloride (Normal Saline Flush) 3 ml QSHIFT PRN IV AFTER MEDS AND BLOOD DRAWS; Start 01/05/18 at 11:00 Sodium Chloride 1,000 ml @ 50 mls/hr Q20H IV Last administered on 01/06/18at 14 :14; Start 01/05/18 at 10:53 Morphine Sulfate (Morphine Sulfate) 1 mg PRN Q3HRS PRN IV PAIN, 1ST; Start 01/05/18 at 11:00 Ondansetron HCl (Zofran) 4 mg PRN Q6HRS PRN IV NAUESA, 1ST CHOICE Last administered on 01/07/18 08:11; Start 01/05/18 at 11:00 Zolpidem Tartrate (Ambien) 5 mg PRN QHS PRN PO INSOMNIA, MRX1 Last administered on 01/06/18 20:58; Start 01/05/18 at 11:00 Duloxetine HCl (Cymbalta) 60 mg DAILY PO Last administered on 01/07/18 08:11; Start 01/06/18 at 09:00 Pregabalin (Lyrica) 150 mg BID PO Last administered on 01/07/18 08:12; Start 01/05/18 at 21:00 Simvastatin (Zocor) 40 mg QHS PO Last administered on 01/06/18at 20:58; Start 01/05/18 at 21:00 Morphine Sulfate (Morphine Sulfate) 2 mg PRN Q3HRS PRN IV PAIN, 2ND Last administered on 01/06/18 18:04; Start 01/05/18 at 11:15 Morphine Sulfate (Morphine Sulfate) 3 mg PRN Q3HRS PRN IV PAIN, 3RD; Start 01/05/18 at 11:15 Morphine Sulfate (Morphine Sulfate) 4 mg PRN Q3HRS PRN IV PAIN, 4TH Last administered on 01/06/18at 02:56; Start 01/05/18 at 11:15 Fentanyl Citrate (Fentanyl 2ml Vial) 100 mcg STK-MED ONCE .ROUTE ; Start at 11:31; Stop 01/05/18 at 11:32; Status DC Phenylephrine HCl (PHENYLEPHRINE in 0.9% NACL PF) 1 mg STK-MED ONCE IV ; Start 01/05/18 at 12:11; Stop 01/05/18 at 12:12; Status DC Acetaminophen/ Hydrocodone Bitart (Lortab 7.5-325/ 15ml Oral Solution) 15 ml PRN Q4HRS PRN PO PAIN SEVERE Last administered on 10/6/18at 08:11; Start at 07:15 Acetaminophen/ Hydrocodone Bitart (Lortab 7.5-325/ 15ml Oral Solution) 10 ml PRN Q4HRS PRN PO PAIN MODERATE; Start 01/06/18 at 07:15 Influenza Virus Vaccine (Afluria Trivalent 2976-3418 Syringe) 0.5 ml ONCE ONCE VAX IM Last administered on 01/06/18at 10:49; Start 01/06/18 at 10:30; Stop 01/06/18 at 10:33; Status DC Active Scripts Active Reported Dexilant (Dexlansoprazole) 60 Mg Cap. 60 Mg PO DAILY Ambien (Zolpidem Tartrate) 5 Mg Tablet 10 Mg PO HS PRN LAST DOSE GIVEN: DATE:05/27/16 TIME:9p.m. NEXT DOSE DUE: DATE:05/28/16 TIME:9p.m. Cymbalta (Duloxetine Hcl) 60 Mg Capsule. 60 Mg PO DAILY LAST DOSE GIVEN: DATE:05/28/16 TIME:9a.m. NEXT DOSE DUE: DATE:05/29/16 TIME:9a.m. Lyrica (Pregabalin) 150 Mg Capsule 150 Mg PO BID 30 Days LAST DOSE GIVEN: DATE:05/28/16 TIME:9a.m. NEXT DOSE DUE: DATE:05/28/16 TIME:9p.m. Simvastatin 40 Mg Tablet 40 Mg PO HS LAST DOSE GIVEN: DATE:05/27/16 TIME:9p.m. NEXT DOSE DUE: DATE:05/28/16 TIME:9p.m. Vitals/I & O Vital Sign - Last 24 Hours 01/06/18 01/06/18 01/06/18 01/06/18 14:12 15:19 18:04 18:35 Temp 98.0 98.0 Pulse 80 Resp 16 16 16 16 B/P (MAP) 143/63 (89) Pulse Ox 92 O2 Delivery Room Air Room Air Room Air Room Air 01/06/18 01/06/18 01/06/18 01/06/18 19:00 20:00 20:58 21:58 Temp 99.1 99.1 Pulse 86 Resp 16 B/P (MAP) 159/67 (97) Pulse Ox 95 O2 Delivery Room Air Room Air Room Air Room Air 01/06/18 01/07/18 01/07/18 01/07/18 23:00 03:00 07:00 08:11 Temp 97.5 98.2 97.5 97.5 98.2 97.5 Pulse 85 83 86 Resp 16 16 18 20 B/P (MAP) 146/63 (90) 128/69 (88) 142/79 (100) Pulse Ox 94 93 93 O2 Delivery Room Air Room Air Room Air Room Air 01/07/18 10:56 Temp 96.4 96.4 Pulse 81 Resp 16 B/P (MAP) 111/59 (76) Pulse Ox 93 O2 Delivery Room Air Intake and Output 01/06/18 01/06/18 01/07/18 15:00 23:00 07:00 Intake Total 728 ml Balance 728 ml YOLI TERAN MD Jan 07, 2018 11:18
--- NOTE | 2018-01-07 11:20 | DISCH ---
DISCHARGE INSTRUCTIONS Activity After Discharge Activity Instructions for Disc: Other, see below (no lifting over 20 lbs) Diet after Discharge Diet after Discharge: Full Liquid ("slippery diet") Wound Incision Care Wound/Incision Care: Other, see below (may remove bandaids and shower) Follow-Up Follow up with: Dr Teran in 2 weeks in office, call for appt [phone] YOLI TERAN MD Jan 07, 2018 11:20
--- NOTE | 2018-01-07 11:25 | PDOC3 ---
Discharge Summary Visit Information Date of Admission: Jan 05, 2018 Date of Discharge: Jan 07, 2018 Admitting Diagnosis: Hiatal hernia, GERD Brief Hospital Course Allergies Allergies Coded Allergies Type Severity Reaction Last Updated Verified oxaprozin Allergy Intermediate Rash 01/05/18 Yes rocuronium Allergy Intermediate Course/tight lungs, bp/hr drop 01/05/18 Yes Vital Signs Vital Signs Date Time Temp Pulse Resp B/P (MAP) Pulse Ox O2 Delivery O2 Flow Rate FiO2 01/07/18 10:56 96.4 81 16 111/59 (76) 93 Room Air 96.4 Brief Hospital Course Ms. Ceballos is a 67 old female who was admitted for surgical repair of the hiatal hernia and a Neo fundoplication. She underwent surgery on 01/05/18, and her postoperative course was uneventful. She was discharged on 01/07/18 to home. Discharge Information Scheduled Dexlansoprazole (Dexilant) 60 Mg Cap., 60 MG PO DAILY, (Reported) Entered as Reported by: FERNANDO TRIPP on 01/04/18 1136 Last Taken: Unknown Dose on 01/04/18 Last Action: HELD on 01/05/18 1100 by YOLI TERAN Duloxetine Hcl (Cymbalta) 60 Mg Capsule.dr, 60 MG PO DAILY, (Reported) LAST DOSE GIVEN: DATE:05/28/16 TIME:9a.m. NEXT DOSE DUE: DATE:05/29/16 TIME: 9a.m. Entered as Reported by: CARO MOTTA on 02/24/151337 Last Taken: Unknown Dose on 01/05/18 0545 Last Action: Reviewed on 1251 by LARRY MENA Pregabalin (Lyrica) 150 Mg Capsule, 150 MG PO BID for 30 Days, Ref 0 (Reported) LAST DOSE GIVEN: DATE:05/28/16 TIME:9a.m. NEXT DOSE DUE: DATE:05/28/16 TIME: 9p.m. Entered as Reported by: CARO MOTTA on 02/24/151337 Last Taken: Unknown Dose on 01/05/18 0545 Last Action: Reviewed on 1251 by LARRY MENA Simvastatin (Simvastatin) 40 Mg Tablet, 40 MG PO HS for FOR CHOLESTEROL, #30 Ref 0 (Reported) LAST DOSE GIVEN: DATE:05/27/16 TIME:9p.m. NEXT DOSE DUE: DATE:05/28/16 TIME: 9p.m. Entered as Reported by: CARO MOTTA on 02/24/151337 Last Taken: Unknown Dose on 01/04/18 Last Action: Reviewed on 01/05/18 1251 by LARRY MENA Scheduled PRN Zolpidem Tartrate (Ambien) 5 Mg Tablet, 10 MG PO HS PRN for INSOMNIA, Ref 0 ( Reported) LAST DOSE GIVEN: DATE:05/27/16 TIME:9p.m. NEXT DOSE DUE: DATE:05/28/16 TIME: 9p.m. Entered as Reported by: CARO MOTTA on 02/24/151337 Last Taken: Unknown Dose on 01/04/18 Last Action: Reviewed on 01/05/18 1251 by LARRY MENA Discontinued Medications Ferrous Sulfate (Ferrous Sulfate) 325 Mg Tablet, 1 TAB PO DAILY, #30 Ref 3 ( Reported) continue as directed Entered as Reported by: CARO MOTTA on 04/29/16 1509 Last Action: Discontinued on 01/04/181135 by FERNANDO TRIPP Omeprazole (Prilosec) 40 Mg Capsule.dr, 40 MG PO DAILY, (Reported) LAST DOSE GIVEN: DATE:05/28/16 TIME:9a.m. NEXT DOSE DUE: DATE:05/29/16 TIME: 9a.m. Entered as Reported by: CARO MOTTA on 02/24/151337 Last Action: Discontinued on 01/04/186 by YOLI HOLM MD Jan 07, 2018 11:25
== END 2018-01-07 13:04 | disposition home or self-care (01) | DRG 328 ==
LOC: SURG 06:30 → 4 NORTH 11:04
PROVIDERS: ADMIT Surgery; ATTEND Surgery
PROC: 0DV44ZZ Restriction of Esophagogastric Junction, Percutaneous Endoscopic Approach (ICD-10-PCS; 2018-01-05)
PROC: 0BUT4KZ Supplement Diaphragm with Nonautologous Tissue Substitute, Percutaneous Endoscopic Approach (ICD-10-PCS; principal; 2018-01-05 08:00)
DX: K44.9 Diaphragmatic hernia without obstruction or gangrene (principal); K21.9 Gastro-esophageal reflux disease without esophagitis; Z88.8 Allergy status to other drugs, medicaments and biological substances
CPT/HCPCS: 90471; 90756; A7015; C1781; J0330; J0690; J1100; J1200; J2250; J2270; J2370; J2405; J2704; J2710; J3010; J3490; J7030; J7120; J7613; Q2035

== ENCOUNTER 2018-07-10 09:50 | Inpatient (IN) | payer MEDICARE ==
[~2018-07-10] VITALS: Ht 167.6 cm; Wt 85.0 kg
[~2018-07-10 09:50] MED LIST changes: -BUPIVACAINE-EPI 0.5%-1:200000 50 ML VIAL. ONE; -HYDR-2762 PO; +HYDR-2765 PO; -OXYC-323 PO; -OXYC-327 PO; +OXYC1TAB15 PO; +OXYC1TAB19 PO; -SURGICEL HEMOSTAT 4X8 EACH. ONE
[2018-07-10] MEDS: IV DEXTROSE 5 %-0.45 % NACL 1,000 ML IV SCH ×2 (13:02→22:45)
--- NOTE | 2018-07-10 13:28 | PDOC2 ---
GI CONSULT Reason For Consult: Possible SBO, constipation HPI: HPI: 68 y/o female transferred from [facility] where she was evaluated for abd pain. GI history significant for hiatal hernia repair w/ Neo fundoplication (w/ Dr. Mendez in 01/2018). She felt great after that but for the past month has had recurrent acid reflux and heartburn w/ nausea and bloating. She says she saw Dr. Mendez and had an outpt barium x-ray on 06/29 but cancelled her follow-up appointment with him because she was so sick and had to go to the hospital. Has been unable to take much more than water due to nausea - also says nothing tastes the same. Additionally reports abd pain - first was lower, but for the past 2 days has been mostly upper "like a tight band under ribs" and "like I was hit with a 2x4." Reports fatigue - just took a shower and says "I didn't know a shower could wear you out." [facility] report from 07/07/18 noted "increased retained contrast throughout the colon. " Notes indicate that CT not performed due to retained barium. She says she was treated w/ an antibiotic (I think Flagyl), mineral oil, castor oil, Miralax , Mag Citrate, and 6 enemas and sent here because she hasn't had a stool since . However, she has passed gas and "caramel cream mucous" (Tuesday and today). EGD by Dr. Calderon in 09/2017 showed reflux esophagitis (no Valdez's on biopsy) . No dysphagia or vomiting. Previous bowel pattern was 1 stool every 3 days. No hematemesis or melena. Might have seen a few flecks of red blood in last stool. Prior to Neo, took PPI and H2 [place] which she stopped after surgery but resumed these recently - says Tums has been the biggest help with "burning" in RUQ. Denies GB, liver, pancreas, or PUD history. Takes Tylenol, Advil, Aleve, or ibuprofen PRN. Also mentions she was supposed to have evaluation for ovarian cyst. PMH: PMH: GERD, diverticulosis, HLD, depression, DDD hiatal hernia repair w/ Neo fundoplication, left knee arthroscopy, right shoulder surgery, right total knee replacement, partial hysterectomy, tonsillectomy FH: Family History: CVA, Hypertension Social History: Smoke: No ALCOHOL: rare Drugs: None ROS: GEN: +fatiuge HEENT: Denies blurred vision, sore throat CV: Denies chest pain RESP: Denies shortness of air, cough GI: Per HPI : Denies hematuria, dysuria ENDO: Denies weight changes NEURO: Denies confusion, dizziness MSK: Denies weakness, joint pain/swelling SKIN: Denies jaundice, pruritus Allergies: Coded Allergies: oxaprozin (Verified Allergy, Intermediate, Rash, 01/05/18) rocuronium (Verified Allergy, Intermediate, Course/tight lungs, bp/hr drop , 01/05/18) Medications: Current Medications Medications (Trade) Dose Ordered Sig/Maggie Route PRN Reason Start Time Stop Time Status Last Admin Dose Admin Dextrose/Sodium Chloride 1,000 ml @ 100 mls/hr Q10H IV 07/10/18 12:45 07/10/18 13:02 Imaging: Imaging: per HPI PE: GEN: NAD HEENT: Atraumatic, PERRL LUNGS: CTAB HEART: RRR ABD: NABS, S/ND, epigastric to RUQ - less to LUQ but is tender LLQ EXTREMITY: No edema SKIN: No rashes, no jaundice NEURO/PSYCH: A & O 3 A/P: A/P: Acid reflux/heartburn, nausea, bloating, abd pain, change in bowel habits, fatigue H/o GERD s/p hiatal hernia repair w/ Neo fundoplication CRC screen - she reports normal colonoscopy ~5 years ago (though not in our office records) Diverticulosis PRN NSAID use Normocytic anemia, hypokalemia, hypoalbuminemia ?ovarian cyst -- I am unable to view barium x-ray results in [place]. Recheck [facility] - would proceed w/ CT A/P pending results and consider resuming clears. ?PPN Could also consider GB eval if above unrevealing. Add PPI. Treat constipation if indicated (though seems she is passing something ). ?due for screening colonoscopy Check anemia parameters. DURGA POOLE Jul 10, 2018 13:28
[2018-07-10 13:30] LABS: BASO % 1 % (0-3); EOS # 0.1 x10^3/uL (0.0-0.7); EOS % 1 % (0-3); HEMATOCRIT 35.6 % (36.0-47.0); HEMOGLOBIN 11.8 g/dL (12.0-15.5); LYMPH # 0.7 x10^3/uL (1.0-4.8); LYMPH % 9 % (24-48); MEAN CORPUSCULAR HEMOGLOBIN 30 pg (25-35); MEAN CORPUSCULAR HGB CONC 33 g/dL (31-37); MEAN CORPUSCULAR VOLUME 89 fL (79-100); MONO # 0.7 x10^3/uL (0.0-1.1); MONO % 9 % (0-9); NEUT # 6.2 x10^3uL (1.8-7.7); NEUT % 81 % (31-73); PLATELET COUNT 222 x10^3/uL (140-400); RED BLOOD COUNT 3.98 x10^6/uL (3.50-5.40); RED CELL DISTRIBUTION WIDTH 15.3 % (11.5-14.5); WHITE BLOOD COUNT 7.7 x10^3/uL (4.0-11.0)
[2018-07-10 13:36] LABS: CALCIUM 8.4 mg/dL (8.5-10.1); CREATININE 0.6 mg/dL (0.6-1.0); POTASSIUM 3.2 mmol/L (3.5-5.1)
[2018-07-10 13:42] LABS: ALBUMIN 2.6 g/dL (3.4-5.0); ALBUMIN/GLOBULIN RATIO 0.7 (1.0-1.7); TOTAL BILIRUBIN 0.5 mg/dL (0.2-1.0); TOTAL PROTEIN 6.4 g/dL (6.4-8.2)
[2018-07-10 15:00] VITALS: BP 142/59
[2018-07-10] MEDS: ONDANSETRON PF 4 MG/2 ML VIAL. IV PRN ×2 (15:26→21:59)
--- NOTE | 2018-07-10 16:13 | RAD ---
Single view of the abdomen 07/10/2018 INDICATION: Retained barium COMPARISON STUDY: None FINDINGS: Single view of the abdomen demonstrates significant retained barium extending from the cecum through the transverse colon. Scant barium is present in the descending colon and with multiple barium-filled colonic diverticula. The overall bowel gas pattern is nonobstructive. No gross pneumoperitoneum is identified. No acute osseous changes are seen. IMPRESSION: 1. Nonobstructive bowel gas pattern. 2.Barium noted throughout the colon as described. Electronically signed by: Nino Gregory MD (07/10/2018 4:10 PM) [id number]
[2018-07-10] MEDS ORDERED: BISACODYL 5 MG TABLET.DR. PO ONE (16:30)
[2018-07-10] MEDS: PANTOPRAZOLE IV PUSH 40 MG VIAL. IVP SCH (17:27)
[2018-07-10] MEDS: LUBIPROSTONE 8 MCG CAPSULE PO SCH (17:28)
[2018-07-10] MEDS: fentaNYL PF VIAL 100 MCG/2 ML VIAL IV PRN ×2 (17:37→21:59)
[2018-07-10 19:00] VITALS: BP 141/53
[2018-07-10] MEDS ORDERED: PREG150C PO (20:09)
[2018-07-10] MEDS ORDERED: ZOLP5TAB5 PO (20:09)
[2018-07-10] MEDS ORDERED: LACT1CAP19 PO (20:09)
[2018-07-10] MEDS ORDERED: MISO200T PO (20:09)
[2018-07-10] MEDS ORDERED: CALC500T31 PO (20:09)
[2018-07-10] MEDS ORDERED: METR500T PO (20:09)
[2018-07-10] MEDS ORDERED: CALCIUM CARBONATE 500 MG TABLET PO PRN (20:30)
[2018-07-10] MEDS ORDERED: KETO30SY2 IV (21:00)
[2018-07-10] MEDS ORDERED: KETOROLAC 30 MG/ML VIAL. IV PRN (21:00)
[2018-07-10] MEDS ORDERED: MAG30ORA2 PO (21:00)
[2018-07-10] MEDS: POLYETHYLENE GLYCOL 3350 17 GM PACKET. PO SCH (21:00)
[2018-07-10] MEDS ORDERED: MAG HYDROX/ALUMINUM HYD/SIMETH 30 ML ORAL.SUSP PO PRN (21:00)
[2018-07-10] MEDS ORDERED: miSOPROStol 200 MCG TABLET PO SCH (21:30)
[2018-07-10] MEDS: metroNIDAZOLE 500 MG TABLET PO SCH (21:56)
[2018-07-10] MEDS: miSOPROStol 100 MCG TABLET PO SCH (21:56)
[2018-07-10] MEDS: PREGABALIN 75 MG CAPSULE PO SCH (21:58)
[2018-07-10] MEDS: LACTOBACILLUS RHAMNOSUS GG 1 CAPSULE. PO SCH (21:58)
[2018-07-10 23:00] VITALS: BP 145/51
[2018-07-11 03:00] VITALS: BP 148/61
[2018-07-11 05:27] LABS: HEMATOCRIT 33.3 % (36.0-47.0); HEMOGLOBIN 11.2 g/dL (12.0-15.5); RED BLOOD COUNT 3.77 x10^6/uL (3.50-5.40); WHITE BLOOD COUNT 7.9 x10^3/uL (4.0-11.0)
[2018-07-11 05:57] LABS: CREATININE 0.6 mg/dL (0.6-1.0)
[2018-07-11] MEDS: PANTOPRAZOLE IV PUSH 40 MG VIAL. IVP SCH ×2 (06:00→16:39)
[2018-07-11 06:01] LABS: POTASSIUM 2.8 mmol/L (3.5-5.1)
--- NOTE | 2018-07-11 06:09 | NUR ---
Added new information to critical results started by AVIS Driscoll.
[2018-07-11] MEDS: POTASSIUM CL 40MEQ IN 0.9%NACL 1,000 ML IV SCH ×2 (06:26→17:11)
[2018-07-11 07:00] VITALS: BP 142/58
[2018-07-11] MEDS: POLYETHYLENE GLYCOL 3350 17 GM PACKET. PO SCH ×2 (08:34→21:21)
[2018-07-11] MEDS: LACTOBACILLUS RHAMNOSUS GG 1 CAPSULE. PO SCH ×2 (08:34→21:21)
[2018-07-11] MEDS: metroNIDAZOLE 500 MG TABLET PO SCH ×3 (08:34→21:21)
[2018-07-11] MEDS: LUBIPROSTONE 8 MCG CAPSULE PO SCH ×2 (08:34→17:10)
[2018-07-11] MEDS: PREGABALIN 75 MG CAPSULE PO SCH ×2 (08:35→21:21)
--- NOTE | 2018-07-11 08:35 | NUR ---
SW following for discharge planning. Discussed with RN, pt is from home and cares for her legally blind . RN advised no SW needs at this time. SW will continue to follow.
--- NOTE | 2018-07-11 08:36 | PDOC2 ---
GALILEA KAUR BOILER REPAIRMAN 07/11/18 0836: CONSULT Date of Consult Date of Consult DATE: 07/11/18 TIME: 08:29 Reason for Consult Reason for Consult: s/p neo Referring Physician Referring Physician: Dr Edwards Identification/Chief Complaint Chief Complaint pain, nausea, reflux Source Source: Chart review, Patient History of Present Illness Reason for Visit: Hx Neo fundoplication 01/05/[address] Teran. Did well for awhile. In the last month more reflux and resumed her PPI and H2 [place]. She was seen in clinic with Dr Teran on 06/29/18--she underwent a UGI(reviewed results--wrap intact, no significant reflux). This last week more nausea and abdominal pain. No significant bowel function since UGI. Xrays showing barium throughout colon. Still very minimal stool, she does feel less bloated, lack of appetite. Refused miralax last night. Past Medical History Cardiovascular: Hyperlipidemia GI: GERD Psych: Depression Past Surgical History Past Surgical History: Tonsillectomy, Hysterectomy, Other (neo fundoplication) Family History Family History: Heart Disease, Stroke Social History No ALCOHOL: rare Drugs: None Current Medications Current Medications Current Medications Fentanyl Citrate (Fentanyl 2ml Vial) 25 mcg PRN Q4HRS PRN IV PAIN Last administered on 07/10/18at 21:59; Start 07/10/18 at 12:45 Ondansetron HCl (Zofran) 4 mg PRN Q4HRS PRN IV NAUSEA/VOMITING Last administered on 07/10/18at 21:59; Start 07/10/18 at 12:45 Dextrose/Sodium Chloride 1,000 ml @ 100 mls/hr Q10H IV Last administered on 07/10/18at 13:02; Start 07/10/18 at 12:45 Pantoprazole Sodium (PROTONIX VIAL for IV PUSH) 40 mg BIDAC IVP Last administered on 07/11/18at 06:00; Start 07/10/18 at 16:30 Polyethylene Glycol (miraLAX PACKET) 17 gm BID PO ; Start 07/10/18 at 21:00 Bisacodyl (Dulcolax Tab) 10 mg 1X ONCE PO Last administered on 07/10/18at 17:27 ; Start 07/10/18 at 16:30; Stop 07/10/18 at 16:31; Status DC Lubiprostone (Amitiza) 8 mcg BIDWMEALS PO Last administered on 07/10/18at 17:28; Start 07/10/18 at 17:00 Calcium Carbonate/ Glycine (Oscal) 500 mg PRN AFTMEALHC PRN PO HEARTBURN / GAS ; Start 07/10/18 at 20:30 Lactobacillus Rhamnosus (Culturelle) 1 cap BID PO Last administered on at 21:58; Start 07/10/18 at 21:00 Misoprostol (Cytotec 200mcg Tab) 100 mcg QIDAFTMEAL PO ; Start 07/10/18 at 21:30 ; Stop 07/10/18 at 21:37; Status DC Zolpidem Tartrate (Ambien) 5 mg PRN QHS PRN PO INSOMNIA; Start 07/10/18 at 20:30 Metronidazole (Flagyl) 500 mg TID PO Last administered on 07/10/18at 21:56; Start 07/10/18 at 21:30 Pregabalin (Lyrica) 150 mg BID PO Last administered on 07/10/18at 21:58; Start at 21:30 Ketorolac Tromethamine (Toradol 30mg Vial) 30 mg PRN Q6HRS PRN IV PAIN; Start 07/10/18 at 21:00; Stop 07/15/18 at 20:59 Al Hydroxide/Mg Hydroxide (Mylanta Plus Xs) 30 ml PRN Q2HRS PRN PO DYSPEPSIA; Start 07/10/18 at 21:00 Misoprostol (Cytotec 100mcg Tab) 100 mcg QIDAFTMEAL PO Last administered on 07/10at 21:56; Start 07/10/18 at 21:37 Potassium Chloride/Sodium Chloride 1,000 ml @ 100 mls/hr Q10H IV Last administered on 07/11/18at 06:26; Start 07/11/18 at 06:30 Active Scripts Active Reported Mag-Al Plus Xs Suspension (Mag Hydrox/Al Hydrox/Simeth) 30 Ml Oral.susp 30 Ml PO PRN Q2HRS PRN Ketorolac Tromethamine 30 Mg/1 Ml Vial 30 Mg IV PRN Q6HRS PRN Culturelle (Lactobacillus Rhamnosus Gg) 1 Each Cap.sprink 1 Each PO BID Cytotec (Misoprostol) 200 Mcg Tablet 100 Mcg PO QIDAFTMEAL Flagyl (Metronidazole) 500 Mg Tablet 500 Mg PO TID Lyrica (Pregabalin) 150 Mg Capsule 1 Cap PO BID Zolpidem Tartrate 5 Mg Tablet 5 Mg PO PRN QHS PRN Calcium Carbonate 500 Mg Tablet 500 Mg PO PRN AFTMEALHC Ambien (Zolpidem Tartrate) 5 Mg Tablet 10 Mg PO HS PRN LAST DOSE GIVEN: DATE:05/27/16 TIME:9p.m. NEXT DOSE DUE: DATE:05/28/16 TIME:9p.m. Cymbalta (Duloxetine Hcl) 60 Mg Capsule.dr 60 Mg PO DAILY LAST DOSE GIVEN: DATE:05/28/16 TIME:9a.m. NEXT DOSE DUE: DATE:05/29/16 TIME:9a.m. Lyrica (Pregabalin) 150 Mg Capsule 150 Mg PO BID 30 Days LAST DOSE GIVEN: DATE:05/28/16 TIME:9a.m. NEXT DOSE DUE: DATE:05/28/16 TIME:9p.m. Simvastatin 40 Mg Tablet 40 Mg PO HS LAST DOSE GIVEN: DATE:05/27/16 TIME:9p.m. NEXT DOSE DUE: DATE:05/28/16 TIME:9p.m. Allergies Allergies: Coded Allergies: oxaprozin (Verified Allergy, Intermediate, Rash, 01/05/18) rocuronium (Verified Allergy, Intermediate, Course/tight lungs, bp/hr drop , 01/05/18) ROS General: YES: Night Sweats; No: Chills PSYCHOLOGICAL ROS: No: Anxiety, Depression Eyes: No Blurry vision, No Double vision Hematological and Lymphatic: No: Bleeding Problems, Blood Clots Respiratory: No: Cough, Shortness of breath Cardiovascular: No Chest Pain, No Palpitations Gastrointestinal: Yes Other (see hpi) Genitourinary: No Dysuria, No Hematuria Musculoskeletal: No Joint Pain, No Muscle Pain Neurological: No Impaired Coord/balance Skin: No Pruritus, No Rash Physical Exam General: Alert, Oriented X3, Cooperative, No acute distress HEENT: PERRLA, Mucous membr. moist/pink Lungs: Clear to auscultation, Normal air movement Heart: Regular rate, Normal S1, Normal S2, No murmurs Abdomen: Soft, Other (mid abdomen TTP) Extremities: No clubbing, No cyanosis Skin: No rashes, No breakdown Neuro: Normal gait, Normal speech Psych/Mental Status: Mental status NL, Mood NL MUSCULOSKELETAL: No deformity, No swelling Vitals VITALS Vital Signs Date Time Temp Pulse Resp B/P (MAP) Pulse Ox O2 Delivery O2 Flow Rate FiO2 07/11/18 07:00 98.1 88 16 142/58 (86) 96 Room Air 98.1 Labs Labs Laboratory Tests Test 07/10/18 13:15 07/11/18 04:38 White Blood Count 7.7 x10^3/uL (4.0-11.0) 7.9 x10^3/uL (4.0-11.0) Red Blood Count 3.98 x10^6/uL (3.50-5.40) 3.77 x10^6/uL (3.50-5.40) Hemoglobin 11.8 g/dL (12.0-15.5) 11.2 g/dL (12.0-15.5) Hematocrit 35.6 % (36.0-47.0) 33.3 % (36.0-47.0) Mean Corpuscular Volume 89 fL (79-100) 88 fL (79-100) Mean Corpuscular Hemoglobin 30 pg (25-35) 30 pg (25-35) Mean Corpuscular Hemoglobin Concent 33 g/dL (31-37) 34 g/dL (31-37) Red Cell Distribution Width 15.3 % (11.5-14.5) 15.0 % (11.5-14.5) Platelet Count 222 x10^3/uL (140-400) 250 x10^3/uL (140-400) Neutrophils (%) (Auto) 81 % (31-73) Lymphocytes (%) (Auto) 9 % (24-48) Monocytes (%) (Auto) 9 % (0-9) Eosinophils (%) (Auto) 1 % (0-3) Basophils (%) (Auto) 1 % (0-3) Neutrophils # (Auto) 6.2 x10^3uL (1.8-7.7) Lymphocytes # (Auto) 0.7 x10^3/uL (1.0-4.8) Monocytes # (Auto) 0.7 x10^3/uL (0.0-1.1) Eosinophils # (Auto) 0.1 x10^3/uL (0.0-0.7) Basophils # (Auto) 0.0 x10^3/uL (0.0-0.2) Reticulocyte Count (auto) 1.7 % (0.5-2.5) Sodium Level 139 mmol/L (136-145) 138 mmol/L (136-145) Potassium Level 3.2 mmol/L (3.5-5.1) 2.8 mmol/L (3.5-5.1) Chloride Level 101 mmol/L (98-107) 102 mmol/L (98-107) Carbon Dioxide Level 20 mmol/L (21-32) 21 mmol/L (21-32) Anion Gap 18 (6-14) 15 (6-14) Blood Urea Nitrogen 9 mg/dL (7-20) 4 mg/dL (7-20) Creatinine 0.6 mg/dL (0.6-1.0) 0.6 mg/dL (0.6-1.0) Estimated GFR (Cockcroft-Gault) 100.0 100.0 BUN/Creatinine Ratio 15 (6-20) Glucose Level 99 mg/dL (70-99) 120 mg/dL (70-99) Calcium Level 8.4 mg/dL (8.5-10.1) 8.0 mg/dL (8.5-10.1) Iron Level 13 ug/dL (50-170) Total Iron Binding Capacity 215 ug/dL (250-450) Iron Saturation 6 % (15-34) Total Bilirubin 0.5 mg/dL (0.2-1.0) Aspartate Amino Transf (AST/SGOT) 10 U/L (15-37) Alanine Aminotransferase (ALT/SGPT) 12 U/L (14-59) Alkaline Phosphatase 72 U/L (46-116) Total Protein 6.4 g/dL (6.4-8.2) Albumin 2.6 g/dL (3.4-5.0) Albumin/Globulin Ratio 0.7 (1.0-1.7) Lipase 64 U/L (73-393) Vitamin B12 Level 1024 pg/mL (247-911) Laboratory Tests Test 07/10/18 13:15 07/11/18 04:38 White Blood Count 7.7 x10^3/uL (4.0-11.0) 7.9 x10^3/uL (4.0-11.0) Red Blood Count 3.98 x10^6/uL (3.50-5.40) 3.77 x10^6/uL (3.50-5.40) Hemoglobin 11.8 g/dL (12.0-15.5) 11.2 g/dL (12.0-15.5) Hematocrit 35.6 % (36.0-47.0) 33.3 % (36.0-47.0) Mean Corpuscular Volume 89 fL (79-100) 88 fL (79-100) Mean Corpuscular Hemoglobin 30 pg (25-35) 30 pg (25-35) Mean Corpuscular Hemoglobin Concent 33 g/dL (31-37) 34 g/dL (31-37) Red Cell Distribution Width 15.3 % (11.5-14.5) 15.0 % (11.5-14.5) Platelet Count 222 x10^3/uL (140-400) 250 x10^3/uL (140-400) Neutrophils (%) (Auto) 81 % (31-73) Lymphocytes (%) (Auto) 9 % (24-48) Monocytes (%) (Auto) 9 % (0-9) Eosinophils (%) (Auto) 1 % (0-3) Basophils (%) (Auto) 1 % (0-3) Neutrophils # (Auto) 6.2 x10^3uL (1.8-7.7) Lymphocytes # (Auto) 0.7 x10^3/uL (1.0-4.8) Monocytes # (Auto) 0.7 x10^3/uL (0.0-1.1) Eosinophils # (Auto) 0.1 x10^3/uL (0.0-0.7) Basophils # (Auto) 0.0 x10^3/uL (0.0-0.2) Reticulocyte Count (auto) 1.7 % (0.5-2.5) Sodium Level 139 mmol/L (136-145) 138 mmol/L (136-145) Potassium Level 3.2 mmol/L (3.5-5.1) 2.8 mmol/L (3.5-5.1) Chloride Level 101 mmol/L (98-107) 102 mmol/L (98-107) Carbon Dioxide Level 20 mmol/L (21-32) 21 mmol/L (21-32) Anion Gap 18 (6-14) 15 (6-14) Blood Urea Nitrogen 9 mg/dL (7-20) 4 mg/dL (7-20) Creatinine 0.6 mg/dL (0.6-1.0) 0.6 mg/dL (0.6-1.0) Estimated GFR (Cockcroft-Gault) 100.0 100.0 BUN/Creatinine Ratio 15 (6-20) Glucose Level 99 mg/dL (70-99) 120 mg/dL (70-99) Calcium Level 8.4 mg/dL (8.5-10.1) 8.0 mg/dL (8.5-10.1) Iron Level 13 ug/dL (50-170) Total Iron Binding Capacity 215 ug/dL (250-450) Iron Saturation 6 % (15-34) Total Bilirubin 0.5 mg/dL (0.2-1.0) Aspartate Amino Transf (AST/SGOT) 10 U/L (15-37) Alanine Aminotransferase (ALT/SGPT) 12 U/L (14-59) Alkaline Phosphatase 72 U/L (46-116) Total Protein 6.4 g/dL (6.4-8.2) Albumin 2.6 g/dL (3.4-5.0) Albumin/Globulin Ratio 0.7 (1.0-1.7) Lipase 64 U/L (73-393) Vitamin B12 Level 1024 pg/mL (247-911) Assessment/Plan Assessment/Plan constipation, retained barium--clears, laxatives--explained importance of clearing barium will review with GI regarding reflux symptoms D/w YOLI Amanda MD 07/11/18 5643: CONSULT Assessment/Plan Assessment/Plan Reviewed; pt seen and examined by myself; the patient had a prior lap HH repair with fundoplication; initially she had a very good response with improvement of her reflux; over the last 1-2 months she has had problems with recurrent heartburn symptoms and is taking regular antacid therapy. An outpatient upper GI was performed which showed no evidence of hernia recurrence or reflux during the study. There was some extension of contrast in the wrap and small volume of residual contrast in the distal esophagus. Following the study the patient appears to have developed marked constipation. She was admitted due to dehydration and constipation. PMH/PSH/ROS/SH as above; exam: alert, oriented, NAD, no neck masses, lungs clear, heart RR and R, abdomen soft , nontender, ext neg for edema; A/P) constipation, GERD, history of hiatal hernia S/P repair; will reevaluate upper GI again, report without evidence of reflux or hernia recurrence. GI following, may benefit from EGD to evaluate the wrap, ?small slip, or if tight may benefit from balloon dilation. GALILEA KAUR BOILER REPAIRMAN Jul 11, 2018 08:36 YOLI TERAN MD Jul 11, 2018 13:55
[2018-07-11] MEDS: IV DEXTROSE 5 %-0.45 % NACL 1,000 ML IV SCH ×2 (08:45→18:19)
--- NOTE | 2018-07-11 09:28 | PDOC ---
Subjective: Subjective: Not interested in eating/drinking but is taking some water and had Miralax w/ orange juice this morning (but previously declined Miralax). Had pain ("tight band" across upper abd) last night but better since 9:30 p.m. Passing "mucous" still. Objective: Objective: D/w Hermila - wrap looks okay on barium study, wondering about EGD w/ possible dilation. Vital Signs: Vital Signs Date Time Temp Pulse Resp B/P (MAP) Pulse Ox O2 Delivery O2 Flow Rate FiO2 07/11/18 07:00 98.1 88 16 142/58 (86) 96 Room Air 98.1 Labs: Laboratory Tests Test 07/10/18 13:15 07/11/18 04:38 White Blood Count 7.7 x10^3/uL 7.9 x10^3/uL Red Blood Count 3.98 x10^6/uL 3.77 x10^6/uL Hemoglobin 11.8 g/dL 11.2 g/dL Hematocrit 35.6 % 33.3 % Mean Corpuscular Volume 89 fL 88 fL Mean Corpuscular Hemoglobin 30 pg 30 pg Mean Corpuscular Hemoglobin Concent 33 g/dL 34 g/dL Red Cell Distribution Width 15.3 % 15.0 % Platelet Count 222 x10^3/uL 250 x10^3/uL Neutrophils (%) (Auto) 81 % Lymphocytes (%) (Auto) 9 % Monocytes (%) (Auto) 9 % Eosinophils (%) (Auto) 1 % Basophils (%) (Auto) 1 % Neutrophils # (Auto) 6.2 x10^3uL Lymphocytes # (Auto) 0.7 x10^3/uL Monocytes # (Auto) 0.7 x10^3/uL Eosinophils # (Auto) 0.1 x10^3/uL Basophils # (Auto) 0.0 x10^3/uL Reticulocyte Count (auto) 1.7 % Sodium Level 139 mmol/L 138 mmol/L Potassium Level 3.2 mmol/L 2.8 mmol/L Chloride Level 101 mmol/L 102 mmol/L Carbon Dioxide Level 20 mmol/L 21 mmol/L Anion Gap 18 15 Blood Urea Nitrogen 9 mg/dL 4 mg/dL Creatinine 0.6 mg/dL 0.6 mg/dL Estimated GFR (Cockcroft-Gault) 100.0 100.0 BUN/Creatinine Ratio 15 Glucose Level 99 mg/dL 120 mg/dL Calcium Level 8.4 mg/dL 8.0 mg/dL Iron Level 13 ug/dL Total Iron Binding Capacity 215 ug/dL Iron Saturation 6 % Total Bilirubin 0.5 mg/dL Aspartate Amino Transf (AST/SGOT) 10 U/L Alanine Aminotransferase (ALT/SGPT) 12 U/L Alkaline Phosphatase 72 U/L Total Protein 6.4 g/dL Albumin 2.6 g/dL Albumin/Globulin Ratio 0.7 Lipase 64 U/L Vitamin B12 Level 1024 pg/mL Imaging: KUB 07/10 IMPRESSION: 1. Nonobstructive bowel gas pattern. 2. Barium noted throughout the colon as described. PE: GEN: NAD - up to chair LUNGS: CTAB HEART: RRR ABD: NABS, S/ND - less discomfort this morning NEURO/PSYCH: A & O 3 A/P: Heartburn, nausea, anorexia, upper abd pain, change in bowel habits S/p hiatal hernia repair w/ Neo fundoplication Diverticulosis DARWIN Hypokalemia - per primary, replacement ordered -- NPO now for EGD at 3:30 p.m. today. Consider modified bowel prep w/ Miralax re: barium - might be difficult since she's still hesitant to drink. ?need for Russ JACOBSON-DURGA SOLITARIO Jul 11, 2018 09:28
--- NOTE | 2018-07-11 10:33 | HP ---
ADMIT DATE: 07/10/2018 HISTORY OF PRESENT ILLNESS: The patient is a 68-year-old female patient who was admitted to [facility] on 07/07/2018 with a complaint of abdominal pain that apparently has been going on for some time. She has been in and out of the Emergency Room. She did complain of some nausea, but no vomiting and unable to have any bowel movement for the last week prior to admission. She was dehydrated and therefore she was admitted to [facility] for evaluation and treatment, severe bowel obstruction, obstipation. She apparently had a KUB on the day of admission that showed that there is a retained contrast throughout the colon extending from the cecum to the distal sigmoid. Amount of contrast has increased suggesting additional interval contrast exam. She has multiple colonic diverticula, most numerous in the sigmoid region. Gas is present in small bowel loops in a nonspecific pattern. There is no evidence of organomegaly. Apparently, despite treatment with laxatives, the patient continued to have abdominal pain and constipation, obstipation that has failed treatment even with enemas and mineral oil. A decision was made to transfer her to [facility] to consult the louver mortiser operator as well as the general surgeon. PAST MEDICAL HISTORY: Significant for gastroesophageal reflux disease, diverticulosis, hyperlipidemia, depression, degenerative disk disease as well as osteoarthritis. PAST SURGICAL HISTORY: Significant for hiatal hernia repair with Neo fundoplication. Left total knee arthroplasty, right shoulder surgery, right total knee arthroplasty, partial hysterectomy and tonsillectomy. ALLERGIES: SHE IS ALLERGIC TO OXAPROZIN AND ROCURONIUM. FAMILY HISTORY: Significant for hypertension and CVA. SOCIAL HISTORY: She apparently does not smoke, drink alcohol or use any recreational drugs. REVIEW OF SYSTEMS: The patient denied any blurring of vision, cataract, glaucoma or macular degeneration. Denied any earache, tinnitus or sensory deafness. Denied any nosebleeds, stuffy nose or postnasal drip. Denied any sore throat, sore tongue, toothache, hoarseness of voice. Did complain of nausea. No vomiting. Has severe constipation. Denied any dysuria, frequency or hematuria. Denied any chest pain, shortness of breath, orthopnea or paroxysmal nocturnal dyspnea. Denied any cough, phlegm or hemoptysis. PHYSICAL EXAMINATION: GENERAL: On arrival to [facility], she looked somewhat pale, but no jaundice, cyanosis or thyromegaly. No jugular venous distention. No lower limb edema. VITAL SIGNS: Her heart rate was 90, blood pressure 142/56, temperature was 98, respiratory rate was 16 and oxygen saturation was 96% on room air. HEAD, EYES, EARS, NOSE AND THROAT: Showed normocephalic, atraumatic. NECK: Supple. HEART: Showed normal first and second heart sounds. No gallop, rub or murmur. CHEST: Clear to auscultation. No crepitation or rhonchi. ABDOMEN: Slightly distended, soft, nontender. No guarding or rigidity. No organomegaly. All hernial orifices intact. Bowel sounds audible. NEUROLOGIC: She is awake, alert, responding appropriately. All cranial nerves intact. EXTREMITIES: She moves extremities without difficulty. She ambulates without assistance or assistive devices. LABORATORY DATA: On admission showed a white cell count 7700, hemoglobin 11.8, hematocrit 35.6, MCV 89 and platelet count 221,000, with normal manual differential. Her chemistry showed a serum sodium 139, potassium 3.2, chloride 101, bicarbonate 20, anion gap 18, BUN 9, creatinine 0.6, estimated GFR was 100 mL per minute. Her glucose was 99, calcium was 8.4. Total bilirubin, AST, ALT, alkaline phosphatase were normal. Total protein was 6.4, albumin was 2.6. IMPRESSION AND PLAN: In summary, this is a 68-year-old female patient who was admitted originally to [facility] with severe constipation and obstipation. As she has not responded to all modalities of treatment, she was transferred to [facility] to consult the gastroenterology team as well as the surgical team. The patient continues to be on a clear liquid diet. MEDICATIONS: She is currently on following medications: She is on Flagyl 500 mg p.o. 3 times a day, simvastatin 40 mg at bedtime, ketorolac, tromethamine 30 mg IV every 6 hours, pregabalin 150 mg twice a day, duloxetine 60 mg once a day, Ambien 5 mg at bedtime, calcium carbonate 500 mg after meals and as needed. Misoprostol 200 mcg 4 times a day, lactobacillus rhamnosus 1 capsule twice a day. CARA GARCIA MD DR: HILARY/johanne JOB#: [id number] / [id number]
[2018-07-11 11:00] VITALS: BP 107/41
[2018-07-11] MEDS: POTASSIUM CHLORIDE 20 MEQ TABLET.ER. PO SCH ×3 (11:00→16:08)
[2018-07-11 14:03] LABS: CREATININE 0.6 mg/dL (0.6-1.0); POTASSIUM 3.3 mmol/L (3.5-5.1)
[2018-07-11] MEDS: IV RINGERS,LACTATED 1000ML 1,000 ML IV SCH (15:02)
[2018-07-11] MEDS ORDERED: LIDOCAINE 2% PF 5 ML VIAL. ONE (15:08)
[2018-07-11] MEDS ORDERED: PROPOFOL 20 ML IV ONE (15:08)
--- NOTE | 2018-07-11 15:28 | PDOC4 ---
Operative Note Operative Note EGD with biopsies Meds propofol per anesthesia Pre-op dx dysphagia/heartburn s/p Neo fundoplication Post-op dx reflux esophagitis s/p bx loose Neo fundoplication normal duodenum Plan advance diet relistor for retained barium PROPECK,YOLI Maya MD Jul 11, 2018 15:27
[2018-07-11] MEDS ORDERED: METHYLNALTREXONE 12 MG/0.6 ML VIAL. SQ ONE (16:00)
[2018-07-11] MEDS: miSOPROStol 100 MCG TABLET PO SCH ×3 (16:08→21:21)
[2018-07-11 19:00] VITALS: BP 149/77
[2018-07-11 23:00] VITALS: BP 117/66
[2018-07-11] MEDS: ZOLPIDEM 5 MG TABLET. PO PRN (23:09)
--- NOTE | 2018-07-12 02:16 | PN ---
DATE: 07/11/2018 SUBJECTIVE: The patient is sitting comfortably in her chair, in no apparent distress. Her abdominal pain is only 2/10 in severity. Denied any nausea or vomiting. Did have some bowel movement. Her pain is worse when she starts moving around. Her lab work this morning showed that her potassium was low at 2.8. We did start her on normal saline with 40 mEq of potassium and also start her on oral potassium. PHYSICAL EXAMINATION: GENERAL: When I examined her, she was pale, but no jaundice, cyanosis or thyromegaly. No jugular venous distension. No lower limb edema. VITAL SIGNS: Her heart rate was 88, blood pressure 142/58, temperature was 98.1, respiratory rate was 16 and oxygen saturation was 96%. HEAD, EYES, EARS, NOSE AND THROAT: Normocephalic and atraumatic. NECK: Supple. HEART: Showed normal first and second heart sounds. No gallop, rub or murmur. CHEST: Clear to auscultation. No crepitation or rhonchi. ABDOMEN: Distended, soft and nontender. No guarding or rigidity. No organomegaly. All hernial orifice intact. Bowel sounds normal. NEUROLOGICAL: She was awake, alert, responding appropriately. Extraocular movements intact. She moves extremities without difficulty. She ambulates without assistance or assistive devices. LABORATORY DATA: Her lab work this morning showed a white cell count 7900; hemoglobin 11; hematocrit 33; MCV 88 and platelet count 250,000. Her chemistry showed a serum sodium 138, potassium 2.8, chloride 102, bicarbonate 21, anion gap of 15, BUN of 4, creatinine 0.6, estimated GFR was 100 mL per minute, her glucose 120 and calcium was 8. ASSESSMENT AND PLAN: The patient has severe obstipation and constipation. Heartburn, nausea and vomiting and upper abdominal pain, diverticulosis, iron-deficiency anemia and hypokalemia. Apparently, the patient was scheduled for esophagogastroduodenoscopy today. CARA GARCIA MD DR: HILARY/johanne JOB#: [id number] / [id number]
[2018-07-12 03:00] VITALS: BP 115/49
[2018-07-12] MEDS: IV RINGERS,LACTATED 1000ML 1,000 ML IV SCH ×2 (04:20→17:40)
[2018-07-12] MEDS: IV DEXTROSE 5 %-0.45 % NACL 1,000 ML IV SCH ×2 (04:45→12:54)
[2018-07-12] MEDS: POTASSIUM CL 40MEQ IN 0.9%NACL 1,000 ML IV SCH ×2 (05:10→18:29)
[2018-07-12] MEDS: PANTOPRAZOLE IV PUSH 40 MG VIAL. IVP SCH (06:05)
[2018-07-12 07:00] VITALS: BP 150/62
[2018-07-12 08:32] LABS: HEMATOCRIT 35.1 % (36.0-47.0); HEMOGLOBIN 11.9 g/dL (12.0-15.5); RED BLOOD COUNT 3.96 x10^6/uL (3.50-5.40); RED CELL DISTRIBUTION WIDTH 15.4 % (11.5-14.5); WHITE BLOOD COUNT 8.6 x10^3/uL (4.0-11.0)
[2018-07-12 08:55] LABS: ALBUMIN 2.5 g/dL (3.4-5.0); ALBUMIN/GLOBULIN RATIO 0.7 (1.0-1.7); CALCIUM 8.2 mg/dL (8.5-10.1); CREATININE 0.6 mg/dL (0.6-1.0); POTASSIUM 3.9 mmol/L (3.5-5.1); TOTAL BILIRUBIN 0.5 mg/dL (0.2-1.0); TOTAL PROTEIN 6.3 g/dL (6.4-8.2)
--- NOTE | 2018-07-12 08:59 | PDOC ---
PROGRESS NOTES Subjective Subjective no heartburn with medicines; main problem is constipation Objective Objective Vital Signs Date Time Temp Pulse Resp B/P (MAP) Pulse Ox O2 Delivery O2 Flow Rate FiO2 07/12/18 03:00 98.5 91 18 115/49 (71) 95 Room Air 98.5 Intake and Output 07/12/18 07:00 Intake Total 1550 ml Balance 1550 ml Intake Oral 900 ml IV Total 650 ml # Voids 6 Physical Exam Abdomen: Soft Heart: Regular rate Extremities: No clubbing, No cyanosis General: Alert, Oriented X3 HEENT: Atraumatic Lungs: Clear to auscultation Neuro: Normal speech Assessment Assessment GERD Plan Plan of Care I reviewed Dr Calderon's EGD, comment on loose fundoplication. Will discuss further with him. I explained this to the patient and indicated that revision ( retightening) of the wrap is possible and could be arranged as an outpatient if necessary. She currently has good control of her reflux symptoms with medications. Ok to discharge from my standpoint, and recommend FU with me in the office to discuss options. Comment Review of Relevant I have reviewed the following items raysa (where applicable) has been applied. Labs Laboratory Tests Test 07/10/18 13:15 07/11/18 04:38 07/11/18 13:05 07/12/18 07:10 White Blood Count 7.7 x10^3/uL (4.0-11.0) 7.9 x10^3/uL (4.0-11.0) 8.6 x10^3/uL (4.0-11.0) Red Blood Count 3.98 x10^6/uL (3.50-5.40) 3.77 x10^6/uL (3.50-5.40) 3.96 x10^6/uL (3.50-5.40) Hemoglobin 11.8 g/dL (12.0-15.5) 11.2 g/dL (12.0-15.5) 11.9 g/dL (12.0-15.5) Hematocrit 35.6 % (36.0-47.0) 33.3 % (36.0-47.0) 35.1 % (36.0-47.0) Mean Corpuscular Volume 89 fL (79-100) 88 fL (79-100) 89 fL (79-100) Mean Corpuscular Hemoglobin 30 pg (25-35) 30 pg (25-35) 30 pg (25-35) Mean Corpuscular Hemoglobin Concent 33 g/dL (31-37) 34 g/dL (31-37) 34 g/dL (31-37) Red Cell Distribution Width 15.3 % (11.5-14.5) 15.0 % (11.5-14.5) 15.4 % (11.5-14.5) Platelet Count 222 x10^3/uL (140-400) 250 x10^3/uL (140-400) 286 x10^3/uL (140-400) Neutrophils (%) (Auto) 81 % (31-73) Lymphocytes (%) (Auto) 9 % (24-48) Monocytes (%) (Auto) 9 % (0-9) Eosinophils (%) (Auto) 1 % (0-3) Basophils (%) (Auto) 1 % (0-3) Neutrophils # (Auto) 6.2 x10^3uL (1.8-7.7) Lymphocytes # (Auto) 0.7 x10^3/uL (1.0-4.8) Monocytes # (Auto) 0.7 x10^3/uL (0.0-1.1) Eosinophils # (Auto) 0.1 x10^3/uL (0.0-0.7) Basophils # (Auto) 0.0 x10^3/uL (0.0-0.2) Reticulocyte Count (auto) 1.7 % (0.5-2.5) Sodium Level 139 mmol/L (136-145) 138 mmol/L (136-145) 139 mmol/L (136-145) Potassium Level 3.2 mmol/L (3.5-5.1) 2.8 mmol/L (3.5-5.1) 3.3 mmol/L (3.5-5.1) Chloride Level 101 mmol/L (98-107) 102 mmol/L (98-107) 102 mmol/L (98-107) Carbon Dioxide Level 20 mmol/L (21-32) 21 mmol/L (21-32) 21 mmol/L (21-32) Anion Gap 18 (6-14) 15 (6-14) 16 (6-14) Blood Urea Nitrogen 9 mg/dL (7-20) 4 mg/dL (7-20) 4 mg/dL (7-20) Creatinine 0.6 mg/dL (0.6-1.0) 0.6 mg/dL (0.6-1.0) 0.6 mg/dL (0.6-1.0) Estimated GFR (Cockcroft-Gault) 100.0 100.0 100.0 BUN/Creatinine Ratio 15 (6-20) Glucose Level 99 mg/dL (70-99) 120 mg/dL (70-99) 114 mg/dL (70-99) Calcium Level 8.4 mg/dL (8.5-10.1) 8.0 mg/dL (8.5-10.1) 8.0 mg/dL (8.5-10.1) Iron Level 13 ug/dL (50-170) Total Iron Binding Capacity 215 ug/dL (250-450) Iron Saturation 6 % (15-34) Total Bilirubin 0.5 mg/dL (0.2-1.0) Aspartate Amino Transf (AST/SGOT) 10 U/L (15-37) Alanine Aminotransferase (ALT/SGPT) 12 U/L (14-59) Alkaline Phosphatase 72 U/L (46-116) Total Protein 6.4 g/dL (6.4-8.2) Albumin 2.6 g/dL (3.4-5.0) Albumin/Globulin Ratio 0.7 (1.0-1.7) Lipase 64 U/L (73-393) Vitamin B12 Level 1024 pg/mL (247-911) Laboratory Tests Test 07/11/18 13:05 07/12/18 07:10 Sodium Level 139 mmol/L (136-145) Potassium Level 3.3 mmol/L (3.5-5.1) Chloride Level 102 mmol/L (98-107) Carbon Dioxide Level 21 mmol/L (21-32) Anion Gap 16 (6-14) Blood Urea Nitrogen 4 mg/dL (7-20) Creatinine 0.6 mg/dL (0.6-1.0) Estimated GFR (Cockcroft-Gault) 100.0 Glucose Level 114 mg/dL (70-99) Calcium Level 8.0 mg/dL (8.5-10.1) White Blood Count 8.6 x10^3/uL (4.0-11.0) Red Blood Count 3.96 x10^6/uL (3.50-5.40) Hemoglobin 11.9 g/dL (12.0-15.5) Hematocrit 35.1 % (36.0-47.0) Mean Corpuscular Volume 89 fL (79-100) Mean Corpuscular Hemoglobin 30 pg (25-35) Mean Corpuscular Hemoglobin Concent 34 g/dL (31-37) Red Cell Distribution Width 15.4 % (11.5-14.5) Platelet Count 286 x10^3/uL (140-400) Medications Current Medications Fentanyl Citrate (Fentanyl 2ml Vial) 25 mcg PRN Q4HRS PRN IV MODERATE TO SEVERE PAIN Last administered on 07/10/18 21:59; Start 07/10/18 at 12:45 Ondansetron HCl (Zofran) 4 mg PRN Q4HRS PRN IV NAUSEA/VOMITING Last administered on 07/10/18 21:59; Start 07/10/18 at 12:45 Dextrose/Sodium Chloride 1,000 ml @ 100 mls/hr Q10H IV Last administered on 13:02; Start 07/10/18 at 12:45 Pantoprazole Sodium (PROTONIX VIAL for IV PUSH) 40 mg BIDAC IVP Last administered on 07/12/18 06:05; Start 07/10/18 at 16:30 Polyethylene Glycol (miraLAX PACKET) 17 gm BID PO Last administered on 21:21; Start 07/10/18 at 21:00 Bisacodyl (Dulcolax Tab) 10 mg 1X ONCE PO Last administered on 07/10/18 17:27 ; Start 07/10/18 at 16:30; Stop 07/10/18 at 16:31; Status DC Lubiprostone (Amitiza) 8 mcg BIDWMEALS PO Last administered on 07/11/18 17:10; Start 07/10/18 at 17:00 Calcium Carbonate/ Glycine (Oscal) 500 mg PRN AFTMEALHC PRN PO HEARTBURN / GAS ; Start 07/10/18 at 20:30 Lactobacillus Rhamnosus (Culturelle) 1 cap BID PO Last administered on 21:21; Start 07/10/18 at 21:00 Misoprostol (Cytotec 200mcg Tab) 100 mcg QIDAFTMEAL PO ; Start 07/10/18 at 21:30 ; Stop 07/10/18 at 21:37; Status DC Zolpidem Tartrate (Ambien) 5 mg PRN QHS PRN PO INSOMNIA Last administered on 23:09; Start 07/10/18 at 20:30 Metronidazole (Flagyl) 500 mg TID PO Last administered on 07/11/18 21:21; Start 07/10/18 at 21:30 Pregabalin (Lyrica) 150 mg BID PO Last administered on 07/11/18 21:21; Start at 21:30 Ketorolac Tromethamine (Toradol 30mg Vial) 30 mg PRN Q6HRS PRN IV MILD PAIN; Start 07/10/18 at 21:00; Stop 07/15/18 at 20:59 Al Hydroxide/Mg Hydroxide (Mylanta Plus Xs) 30 ml PRN Q2HRS PRN PO DYSPEPSIA; Start 07/10/18 at 21:00 Misoprostol (Cytotec 100mcg Tab) 100 mcg QIDAFTMEAL PO Last administered on 07/11 21:21; Start 07/10/18 at 21:37 Potassium Chloride/Sodium Chloride 1,000 ml @ 100 mls/hr Q10H IV Last administered on 07/12/18 05:10; Start 07/11/18 at 06:30 Potassium Chloride (Klor-Con) 40 meq Q1H PO Last administered on 07/11/18 16:08 ; Start 07/11/18 at 10:00; Stop 07/11/18 at 12:01; Status DC Ringer's Solution 1,000 ml @ 75 mls/hr [id number] IV Last administered on at 15:02; Start 07/11/18 at 15:00 Propofol 20 ml @ As Directed STK-MED ONCE IV ; Start 07/11/18 at 15:08; Stop 07/11 at 15:09; Status DC Lidocaine HCl (Lidocaine Pf 2% Vial) 5 ml STK-MED ONCE .ROUTE ; Start 07/11/18 at 15:08; Stop 07/11/18 at 15:09; Status DC Methylnaltrexone Garner (Relistor) 12 mg 1X ONCE SQ Last administered on at 16:10; Start 07/11/18 at 16:00; Stop 07/11/18 at 16:01; Status DC Active Scripts Active Reported Mag-Al Plus Xs Suspension (Mag Hydrox/Al Hydrox/Simeth) 30 Ml Oral.susp 30 Ml PO PRN Q2HRS PRN Ketorolac Tromethamine 30 Mg/1 Ml Vial 30 Mg IV PRN Q6HRS PRN Culturelle (Lactobacillus Rhamnosus Gg) 1 Each Cap.sprink 1 Each PO BID Cytotec (Misoprostol) 200 Mcg Tablet 100 Mcg PO QIDAFTMEAL Flagyl (Metronidazole) 500 Mg Tablet 500 Mg PO TID Lyrica (Pregabalin) 150 Mg Capsule 1 Cap PO BID Zolpidem Tartrate 5 Mg Tablet 5 Mg PO PRN QHS PRN Calcium Carbonate 500 Mg Tablet 500 Mg PO PRN AFTMEALHC Ambien (Zolpidem Tartrate) 5 Mg Tablet 10 Mg PO HS PRN LAST DOSE GIVEN: DATE:05/27/16 TIME:9p.m. NEXT DOSE DUE: DATE:05/28/16 TIME:9p.m. Cymbalta (Duloxetine Hcl) 60 Mg Capsule.dr 60 Mg PO DAILY LAST DOSE GIVEN: DATE:05/28/16 TIME:9a.m. NEXT DOSE DUE: DATE:05/29/16 TIME:9a.m. Lyrica (Pregabalin) 150 Mg Capsule 150 Mg PO BID 30 Days LAST DOSE GIVEN: DATE:05/28/16 TIME:9a.m. NEXT DOSE DUE: DATE:05/28/16 TIME:9p.m. Simvastatin 40 Mg Tablet 40 Mg PO HS LAST DOSE GIVEN: DATE:05/27/16 TIME:9p.m. NEXT DOSE DUE: DATE:05/28/16 TIME:9p.m. Vitals/I & O Vital Sign - Last 24 Hours 07/11/18 07/11/18 07/11/18 07/11/18 11:00 14:51 14:54 15:29 Temp 97.7 98.3 97.7 97.7 98.3 97.7 Pulse 94 87 87 Resp 16 16 16 B/P (MAP) 107/41 (63) 103/67 Pulse Ox 98 98 98 O2 Delivery Room Air Room Air Room Air 07/11/18 07/11/18 07/11/18 07/11/18 15:44 19:00 20:00 23:00 Temp 99.3 99.7 99.3 99.7 Pulse 84 99 90 Resp 16 18 18 B/P (MAP) 130/60 149/77 (101) 117/66 (83) Pulse Ox 96 95 94 O2 Delivery Room Air Room Air Room Air Room Air 07/12/18 03:00 Temp 98.5 98.5 Pulse 91 Resp 18 B/P (MAP) 115/49 (71) Pulse Ox 95 O2 Delivery Room Air Intake and Output 07/11/18 07/11/18 07/12/18 15:00 23:00 07:00 Intake Total 650 ml 900 ml Balance 650 ml 900 ml YOLI TERAN MD Jul 12, 2018 08:59
[2018-07-12] MEDS: POLYETHYLENE GLYCOL 3350 17 GM PACKET. PO SCH ×2 (09:12→20:32)
[2018-07-12] MEDS: PREGABALIN 75 MG CAPSULE PO SCH ×2 (09:13→20:35)
[2018-07-12] MEDS: metroNIDAZOLE 500 MG TABLET PO SCH ×2 (09:13→15:58)
[2018-07-12] MEDS: LUBIPROSTONE 8 MCG CAPSULE PO SCH ×2 (09:13→18:07)
[2018-07-12] MEDS: miSOPROStol 100 MCG TABLET PO SCH ×4 (09:13→20:36)
[2018-07-12] MEDS: LACTOBACILLUS RHAMNOSUS GG 1 CAPSULE. PO SCH ×2 (09:13→20:35)
--- NOTE | 2018-07-12 09:54 | NUR ---
SW following. Discussed with RN and Dr. Edwards, pt advancing diet today. PT/OT advised no therapy needs upon discharge. SW will continue to follow for any discharge planning needs.
--- NOTE | 2018-07-12 10:01 | PDOC ---
Subjective: Subjective: I asked about stooling - she says "still nothing"... but then reports "brown slime" and enough that she couldn't make it to the restroom in time. Tolerating PO (scrambled eggs) and heartburn has improved. Still has some abdominal soreness - mid/lower. Really worried about retained barium turning into cement. Also tells me she used to take Amitiza long ago. Objective: Vital Signs: Vital Signs Date Time Temp Pulse Resp B/P (MAP) Pulse Ox O2 Delivery O2 Flow Rate FiO2 07/12/18 07:00 97.7 93 18 150/62 (91) 97 Room Air 97.7 Labs: Laboratory Tests Test 07/11/18 13:05 07/12/18 07:10 Sodium Level 139 mmol/L 138 mmol/L Potassium Level 3.3 mmol/L 3.9 mmol/L Chloride Level 102 mmol/L 103 mmol/L Carbon Dioxide Level 21 mmol/L 24 mmol/L Anion Gap 16 11 Blood Urea Nitrogen 4 mg/dL 3 mg/dL Creatinine 0.6 mg/dL 0.6 mg/dL Estimated GFR (Cockcroft-Gault) 100.0 100.0 Glucose Level 114 mg/dL 101 mg/dL Calcium Level 8.0 mg/dL 8.2 mg/dL White Blood Count 8.6 x10^3/uL Red Blood Count 3.96 x10^6/uL Hemoglobin 11.9 g/dL Hematocrit 35.1 % Mean Corpuscular Volume 89 fL Mean Corpuscular Hemoglobin 30 pg Mean Corpuscular Hemoglobin Concent 34 g/dL Red Cell Distribution Width 15.4 % Platelet Count 286 x10^3/uL BUN/Creatinine Ratio 5 Total Bilirubin 0.5 mg/dL Aspartate Amino Transf (AST/SGOT) 9 U/L Alanine Aminotransferase (ALT/SGPT) 11 U/L Alkaline Phosphatase 74 U/L Lactate Dehydrogenase 197 U/L Total Protein 6.3 g/dL Albumin 2.5 g/dL Albumin/Globulin Ratio 0.7 Thyroid Stimulating Hormone (TSH) 0.896 uIU/mL Imaging: EGD 07/11/18 reflux esophagitis s/p bx loose Neo fundoplication normal duodenum PE: GEN: NAD - up to chair LUNGS: CTAB HEART: RRR ABD: NABS, soft, vaguely tender - seems better NEURO/PSYCH: A & O 3 A/P: Reflux esophagitis S/p hiatal hernia repair w/ Neo fundoplication - loose on EGD yesterday as above Change in bowel habits, abd discomfort DARWIN -- Now stooling and tolerating PO. She is very concerned re: retained barium - will order another KUB. DC per primary on PPI, Amitiza, and Miralax. Could consider CT if abd discomfort still an issue. ?need for Flagy Follow-up w/ Dr. Mendez. Would benefit also from outpt colonoscopy - our office can arrange. DURGA POOLE Jul 12, 2018 10:01
[2018-07-12 11:00] VITALS: BP 107/47
[2018-07-12] MEDS: FERROUS SULFATE 325 MG TABLET. PO SCH (11:07)
--- NOTE | 2018-07-12 14:03 | RAD ---
AP view of the abdomen Clinical indications: Lower abdominal pain and constipation. COMPARISON: July 10, 2018 FINDINGS: There has been evacuation of barium from the colon. There is a small amount of residual barium within diverticuli of the colon mainly the rectosigmoid region. No obstructive bowel pattern is seen. The osseous structures are intact. IMPRESSION: Almost all of the barium has been evacuated except for residual barium within diverticuli. Electronically signed by: Markus Montiel MD (07/12/2018 2:00 PM) [email or web address]
[2018-07-12 15:00] VITALS: BP 129/68
[2018-07-12 19:00] VITALS: BP 134/67
[2018-07-12] MEDS: ZOLPIDEM 5 MG TABLET. PO PRN (20:36)
--- NOTE | 2018-07-12 22:34 | PN ---
DATE: 07/12/2018 SUBJECTIVE: The patient is resting slightly propped up in bed, no apparent distress. She did have upper GI endoscopy done yesterday and apparently she was found to have reflux esophagitis and loose Neo fundoplication, normal duodenum. She was given Relistor for retained barium and her diet was advanced. PHYSICAL EXAMINATION: GENERAL: When I saw her this morning, she looked well and was clearly in no apparent respiratory distress. No pallor, jaundice, cyanosis or thyromegaly. No jugular venous distension. No limb edema. VITAL SIGNS: Her heart rate was 91, blood pressure was 115/49, temperature was 98.5, respiratory rate was 18 and oxygen saturation was 95%. ABDOMEN: Soft, lax and tender. LABORATORY DATA: Her lab work showed white cell count 7900; hemoglobin 11; hematocrit 33; MCV 88 and platelet count 250,000. Serum sodium 139, potassium 3.3, chloride 102, bicarbonate 21, anion gap of 16, BUN 4, creatinine 0.6, estimated GFR was 100 mL per minute, glucose 114 and calcium was 8.1. Today's labs are still pending at the time of this dictation. ASSESSMENT: 1. Severe obstipation, constipation for which was given Relistor and she had bowel movement yesterday. 2. Heartburn, nausea and vomiting, upper abdominal pain for which she had an esophagogastroduodenoscopy, which showed that she has reflux esophagitis and loose Neo fundoplication. 3. Diverticulosis. 4. Iron-deficiency anemia. 5. Hypokalemia that has improved. PLAN: To continue with IV fluid. Advance her diet and hopefully discharge her home tomorrow. CARA GARCIA MD DR: HILARY/johanne JOB#: [id number] / [id number]
[2018-07-12 23:00] VITALS: BP 125/53
[2018-07-13] MEDS: IV DEXTROSE 5 %-0.45 % NACL 1,000 ML IV SCH ×2 (00:45→10:45)
[2018-07-13 03:00] VITALS: BP 116/49
[2018-07-13] MEDS: POTASSIUM CL 40MEQ IN 0.9%NACL 1,000 ML IV SCH ×2 (06:16→08:30)
[2018-07-13 07:00] VITALS: BP 127/60
[2018-07-13] MEDS: IV RINGERS,LACTATED 1000ML 1,000 ML IV SCH (07:00)
[2018-07-13] MEDS ORDERED: PANTOPRAZOLE 40 MG TABLET.DR. PO SCH (07:30)
[2018-07-13] MEDS: PREGABALIN 75 MG CAPSULE PO SCH (08:54)
[2018-07-13] MEDS: LUBIPROSTONE 8 MCG CAPSULE PO SCH (08:54)
[2018-07-13] MEDS: FERROUS SULFATE 325 MG TABLET. PO SCH (08:55)
[2018-07-13] MEDS: miSOPROStol 100 MCG TABLET PO SCH (08:55)
[2018-07-13] MEDS: LACTOBACILLUS RHAMNOSUS GG 1 CAPSULE. PO SCH (08:55)
--- NOTE | 2018-07-13 08:56 | PDOC ---
GALILEA KAUR PIPER HELPER 07/13/18 0856: SURGICAL PROGRESS NOTE Subjective some nausea, just does not feel great Vital Signs Vital Signs Date Time Temp Pulse Resp B/P (MAP) Pulse Ox O2 Delivery O2 Flow Rate FiO2 07/13/18 07:00 98.1 100 18 127/60 (82) 95 Room Air 98.1 I&O Intake and Output 07/13/18 07:00 Intake Total 600 ml Balance 600 ml Intake Oral 600 ml # Voids 6 General: Alert, Oriented X3, Cooperative, No acute distress Abdomen: Soft, Other (ND) Labs Laboratory Tests Test 07/11/18 13:05 07/12/18 07:10 Sodium Level 139 mmol/L (136-145) 138 mmol/L (136-145) Potassium Level 3.3 mmol/L (3.5-5.1) 3.9 mmol/L (3.5-5.1) Chloride Level 102 mmol/L (98-107) 103 mmol/L (98-107) Carbon Dioxide Level 21 mmol/L (21-32) 24 mmol/L (21-32) Anion Gap 16 (6-14) 11 (6-14) Blood Urea Nitrogen 4 mg/dL (7-20) 3 mg/dL (7-20) Creatinine 0.6 mg/dL (0.6-1.0) 0.6 mg/dL (0.6-1.0) Estimated GFR (Cockcroft-Gault) 100.0 100.0 Glucose Level 114 mg/dL (70-99) 101 mg/dL (70-99) Calcium Level 8.0 mg/dL (8.5-10.1) 8.2 mg/dL (8.5-10.1) White Blood Count 8.6 x10^3/uL (4.0-11.0) Red Blood Count 3.96 x10^6/uL (3.50-5.40) Hemoglobin 11.9 g/dL (12.0-15.5) Hematocrit 35.1 % (36.0-47.0) Mean Corpuscular Volume 89 fL (79-100) Mean Corpuscular Hemoglobin 30 pg (25-35) Mean Corpuscular Hemoglobin Concent 34 g/dL (31-37) Red Cell Distribution Width 15.4 % (11.5-14.5) Platelet Count 286 x10^3/uL (140-400) BUN/Creatinine Ratio 5 (6-20) Total Bilirubin 0.5 mg/dL (0.2-1.0) Aspartate Amino Transf (AST/SGOT) 9 U/L (15-37) Alanine Aminotransferase (ALT/SGPT) 11 U/L (14-59) Alkaline Phosphatase 74 U/L (46-116) Lactate Dehydrogenase 197 U/L (81-234) Total Protein 6.3 g/dL (6.4-8.2) Albumin 2.5 g/dL (3.4-5.0) Albumin/Globulin Ratio 0.7 (1.0-1.7) Thyroid Stimulating Hormone (TSH) 0.896 uIU/mL (0.358-3.74) Problem List constipation, KUB with most barium gone advance diet FU in clinic with Dr Mendez to discuss further will sign off, available as needed YOLI MENDEZ MD 07/13/18 1013: SURGICAL PROGRESS NOTE Assessment/Plan Agree with above GALILEA KAUR PIPER HELPER Jul 13, 2018 08:56 YOLI MENDEZ MD Jul 13, 2018 10:13
[2018-07-13] MEDS: POLYETHYLENE GLYCOL 3350 17 GM PACKET. PO SCH (08:59)
--- NOTE | 2018-07-13 10:35 | NUR ---
SW following. Discussed with RN, pt advancing diet, could possible discharge home today if tolerating diet.
--- NOTE | 2018-07-13 10:56 | PDOC ---
Subjective: Subjective: Tolerating PO. Feels "blah." Still passing brown slime. Had intermittent left /mid abd pain - "twinges." Asks about having a CT scan. Objective: Vital Signs: Vital Signs Date Time Temp Pulse Resp B/P (MAP) Pulse Ox O2 Delivery O2 Flow Rate FiO2 07/13/18 07:00 98.1 100 18 127/60 (82) 95 Room Air 98.1 Imaging: KUB 07/12 IMPRESSION: Almost all of the barium has been evacuated except for residual barium within diverticuli. PE: GEN: NAD LUNGS: CTAB HEART: RRR ABD: NABS, S/ND, periumbilical tenderness to LLQ NEURO/PSYCH: A & O 3 A/P: Reflux esophagitis S/p hiatal hernia repair w/ Neo fundoplication - loose on EGD yesterday as above Change in bowel habits, periumbilical/LLQ discomfort DARWIN -- She is hesitant to admit she's better but is now tolerating PO and stooling. Reviewed w/ Dr. Calderon - okay to DC (on PPI, Amitiza/Miralax, and iron) and follow-up as outpt for colonoscopy. Called this to RN. DURGA POOLE Jul 13, 2018 10:56
[2018-07-13 11:00] VITALS: BP 121/51
[2018-07-13] MEDS ORDERED: PANT20TA2 PO (12:49)
[2018-07-13] MEDS ORDERED: LUBI24CA7 PO (12:49)
[2018-07-13] MEDS ORDERED: POLY17PO29 PO (12:50)
--- NOTE | 2018-07-13 13:48 | NUR ---
Discharge instructions and belongings reviewed with patient, verbalized understanding. Patient was escorted out via wheelchair by Isabel LOWRY accompanied by her .
--- NOTE | 2018-07-13 17:07 | PATHOLOGY ---
[facility] Accession Number: [id number] . 01 Material submitted: . esophagus - DISTAL ESOPHAGUS BIOPSY. Modifiers: distal . 01 Clinical history: . N/V, abdomen pain, dysphagia . 02 Diagnosis: Esophageal biopsies, distal esophagus: - Segments of hyperplastic squamous esophageal mucosa showing ulceration and acute inflammation. (JPM:[facility] 07/13/2018) QTP/07/13/2018 . 02 Comment: Sections of the distal esophageal biopsy reveal segments of hyperplastic squamous esophageal mucosa showing focal ulceration and acute inflammation, and segments of acute inflammatory exudate. The findings are consistent with reflux esophagitis with ulceration. There are no viral inclusions identified. There is no evidence of Valdez's change, dysplasia,or malignancy. (JPM:[facility] 07/13/2018) . 02 Electronically signed: . Ahmet Deleon MD, Pathologist NPI- [id number] . 01 Gross description: . The specimen is received in formalin, labeled "Lin, Yamila, distal esophagus BX" and consists of multiple fragments of translucent ramirez-pham tissue measuring 1.3 x 0.5 x 0.2 cm in aggregate which are entirely submitted in A1. (SDY; 07/12/2018) SYU/SYU . 02 Pathologist provided ICD-10: K22.10, K20.9 . 02 CPT . 423030 Specimen Comment: A courtesy copy of this report has been sent to Specimen Comment: [phone], , . Specimen Comment: Report sent to ,DR RICE / DR GARCIA Performed at: [address], [place] [id number] MD Enrique Eckert MD Phone: [phone] Performed at: [address] [id number] MD Ahmet Deleon MD Phone: [phone]
--- NOTE | 2018-08-10 17:19 | DS ---
DATE OF DISCHARGE: 07/13/2018 HISTORY OF PRESENT ILLNESS: The patient is a 68-year-old female patient who was admitted to [facility] on 07/07/2018 with a complaint of abdominal pain that apparently has been going on for some time. She has been in and out of the Emergency Room. Did complain of some nausea, but no vomiting, unable to have any bowel movement for the last week prior to admission. She was dehydrated, and therefore, she was admitted to [facility] for evaluation and treatment. She apparently had a KUB on the day of admission that showed that there is a retained contrast throughout the colon extending from the cecum to the distal sigmoid. She has multiple colonic diverticula, most numerous in the sigmoid region. Gas is present in small bowel loops and in a specific pattern. There is no evidence of organomegaly. Apparently despite treatment with laxatives, the patient continued to have abdominal pain and constipation, obstipation, that has failed treatment even with Enemas and mineral oil, and therefore, the patient was transferred to [facility] to consult the Gastroenterology as well as general surgeon. She was seen by the retirement plan counselor and she was kept n.p.o. for esophagogastroduodenoscopy. She was seen by the surgical team, but no surgical intervention was recommended. She underwent upper GI endoscopy and was found to have reflux esophagitis and loose Neo fundoplication with that. Duodenum was normal. She apparently did well and her diet was advanced and she has had bowel movement, and therefore, a decision was made to discharge her home to continue with the Amitiza 24 mcg twice a day together with MiraLax 17 grams twice a day as well as Protonix for esophagitis. PHYSICAL EXAMINATION: GENERAL: On the day of discharge, she looked well and was clearly in no apparent respiratory distress, somewhat pale, but no jaundice, cyanosis or thyromegaly. No jugular venous distention. No limb edema. VITAL SIGNS: Her heart rate was 91, blood pressure was 115/49, temperature was 98.5, respiratory rate was 18 and oxygen saturation was 95%. HEAD, EYES, EARS, NOSE AND THROAT: Showed normocephalic, atraumatic. NECK: Supple. HEART: Showed normal first and second sounds. No gallop or murmur. CHEST: Clear to auscultation. No crepitation or rhonchi. ABDOMEN: Distended, soft, nontender. No guarding or rigidity. No organomegaly. Hernial orifice is intact. Bowel sounds are normal. NEUROLOGIC: She was awake, alert, responding appropriately. All her cranial nerves are intact. EXTREMITIES: She moves extremities without difficulty. She ambulates without assistance or assistive devices. Her intake was 1550, no output was recorded. LABORATORY DATA: Showed her white cell count was 8600, hemoglobin 12, hematocrit 35, MCV 89 and platelet count 286,000. Her chemistry showed a serum sodium 138, potassium 3.9, chloride 103, bicarbonate 24, anion gap 11, BUN 3, creatinine 0.6, and estimated GFR was 100 mL per minute. Her glucose was 101, calcium was 8.2. Her total bilirubin, AST, ALT, alkaline phosphatase were normal. Total protein was 6.3, albumin 2.5. Her TSH was normal at 0.896. DISCHARGE MEDICATIONS: She was discharged to continue on Amitiza 24 mcg capsule twice a day, Protonix 40 mg once a day, polyethylene glycol 17 grams daily, calcium carbonate 500 mg after meals, duloxetine 60 mg daily, Lactobacillus rhamnosus 1 capsule twice a day, Mylanta 30 mL every 2 hours as needed, misoprostol for Cytotec 100 mcg 4 times a day, pregabalin for Lyrica 150 mg twice a day, simvastatin 40 mg at bedtime and Ambien 5 mg at bedtime as needed. FINAL DISCHARGE DIAGNOSES: 1. Severe obstipation, constipation for which she was given Relistor and she had multiple bowel movements. 2. For heartburn, nausea and vomiting and upper abdominal pain, she had an esophagogastroduodenoscopy, which showed she has reflux esophagitis and loose Neo fundoplication 3. Diverticulosis. 4. Iron deficiency anemia. 5. Hypokalemia has improved. CARA GARCIA MD DR: HILARY/johanne JOB#: [id number] / [id number]
== END 2018-07-13 13:49 | disposition home or self-care (01) | DRG 391 ==
LOC: 4 NORTH 11:32
PROVIDERS: ADMIT Internal Medicine; ATTEND Internal Medicine
PROC: 0DB38ZX Excision of Lower Esophagus, Via Natural or Artificial Opening Endoscopic, Diagnostic (ICD-10-PCS; principal; 2018-07-11 15:30)
DX: K21.0 Gastro-esophageal reflux disease with esophagitis (principal); E43 Unspecified severe protein-calorie malnutrition; E78.5 Hyperlipidemia, unspecified; E87.6 Hypokalemia; K57.30 Diverticulosis of large intestine without perforation or abscess without bleeding; D50.9 Iron deficiency anemia, unspecified; F32.9 Major depressive disorder, single episode, unspecified; R13.10 Dysphagia, unspecified; Z96.653 Presence of artificial knee joint, bilateral; D64.9 Anemia, unspecified; Z80.0 Family history of malignant neoplasm of digestive organs; Z82.3 Family history of stroke; Z82.49 Family history of ischemic heart disease and other diseases of the circulatory system; Z90.711 Acquired absence of uterus with remaining cervical stump; Z88.6 Allergy status to analgesic agent; Z88.8 Allergy status to other drugs, medicaments and biological substances; Z68.30 Body mass index [BMI] 30.0-30.9, adult
CPT/HCPCS: 36415; 43239; 74018; 80048; 80053; 82607; 83540; 83550; 83615; 83690; 84443; 85025; 85027; 85045; 88305; C9113; J2001; J2212; J2405; J2704; J3010; J3480; J7120

== ENCOUNTER → 2018-08-22 | Outpatient (CLI) | payer MEDICARE ==
[~2018-08-22] MED LIST changes: +CALC500T31 PO; +KETO30SY2 IV; +LACT1CAP19 PO; +LUBI24CA7 PO; +MAG30ORA2 PO; +METR500T PO; +MISO200T PO; +PANT20TA2 PO; +POLY17PO29 PO; +ZOLP5TAB5 PO
--- NOTE | 2018-08-22 10:26 | KCIC ---
Barium enema HISTORY: Chronic constipation, incomplete colonoscopy COMPARISON: There is no previous similar exam available. FINDINGS: Patient had a KUB performed August 21, 2018 which demonstrated residual fluid or stool in the left colon, patient brought back today to complete exam. There are some phleboliths in the pelvis. There was no evidence of colonic obstruction, eventual reflux of contrast in the distal small bowel, also visualization of the appendix. There is redundancy of the sigmoid colon. Exam is somewhat limited due to retained barium especially in segments of the right colon, also difficult to fully distend the redundant sigmoid colon with gas during exam. There is fairly extensive diverticulosis most notable of the sigmoid colon although other scattered colonic diverticulosis present. No convincing mucosal mass, concentric mass, or stricture was identified although limited evaluation for smaller polyps. Fluoroscopy time: 5 minutes 12 seconds, 24 images IMPRESSION: 1. There are some limitations of exam as described, no concentric mass or stricture identified of the colon. There is again diverticulosis greatest of the sigmoid colon. There is redundancy of sigmoid colon. Electronically signed by: Kan Rahman MD (08/22/2018 10:23 AM) [id number]
== END | disposition home or self-care (01) ==
LOC: KCIC 08-21 08:41
PROVIDERS: ATTEND Internal Medicine Gastroenterology
DX: K57.30 Diverticulosis of large intestine without perforation or abscess without bleeding (principal); K59.00 Constipation, unspecified; I87.8 Other specified disorders of veins
CPT/HCPCS: 74270